=== PATIENT | female | born 1990 | race Caucasian/White ===

== ENCOUNTER 2016-02-20 09:00 | Emergency (ER) | payer OTHER ==
--- NOTE | 2016-02-20 10:03 | EDDOCDS ---
Physician Documentation [facility] Name: Florina Luna Age: 25 yrs Sex: Female : 1990 Arrival Date: 02/20/2016 Time: 09:00 Bed Triage 3 Private MD: Disposition: 02/20/16 09:53 Discharged to Home/Self Care. Impression: Acute nasopharyngitis [common cold], Viral infection, unspecified. - Condition is Stable. - Discharge Instructions: Upper Respiratory Infection, Adult, Viral Infections, Cool Mist Vaporizers. - Prescriptions for azelastine 137 mcg (0.1 %) Nasal Aerosol, [place] - spray 2 spray by INTRANASAL route 2 times per day each nostril; 1 bottle. - Medication Reconciliation, Local Pharmacy Hours form. - [facility]; When: Call to arrange an appointment; Reason: Further diagnostic work-up, Recheck today's complaints, Continuance of care. - Problem is new. - Symptoms are unchanged. Historical: - Allergies: Geodon (numbness); Lemon (Anaphylaxis); - Home Meds: 1. none - PMHx: Anxiety; - PSHx: X 2; laproscopic exploration; Tubal ligation; - Social history: Smoking status: Patient states was never smoker of tobacco. No barriers to communication noted, The patient speaks fluent Ukrainian, Speaks appropriately for age. - Family history: Not pertinent. - : The pt / caregiver states he / she is not on anticoagulants. Home medication list is obtained from the patient. - Exposure Risk Screening:: None identified. 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 5 in. (165.10 cm) (R); Pain 3/10; 09:10 Body Mass Index 29.95 (81.65 kg, 165.10 cm) ct3 MDM: 09:51 Financial registration complete. lg Signatures: Krishna Swain, Francisco Reg lg Kwasi Ardon PA PA btw Tiffany Smith RN RN jc4 Yen,Davida,RN RN ead MTDD
--- NOTE | 2016-02-20 10:03 | EDDOCDS ---
Nurse's Notes [facility] Name: Florina Luna Age: 25 yrs Sex: Female : 1990 Arrival Date: 02/20/2016 Time: 09:00 Bed Triage 3 Private MD: Diagnosis: Acute nasopharyngitis [common cold];Viral infection, unspecified Presentation: 02/19 09:24 Presenting complaint: Patient states: c/o cough, congestion, n/v. onset of symptoms ead yesterday. Adult Sepsis Screening: The patient does not have new or worsening altered mentation. Patient's respiratory rate is less than 22. Systolic blood pressure is greater than 100. Patient has a qSOFA score of 0- Negative Sepsis Screen. Suicide/Homicide risk assessment- the patient denies having any suicidal and/or homicidal ideations and does not present with any other emotional, behavioral or mental health complaints. 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 Transition of care: patient was not received from another setting of care. 09:24 Acuity: DERRELL Level 3 ead 09:24 Method Of Arrival: Walkin/Carried/Asstd ead Triage Assessment: 09:26 General: Appears in no apparent distress, comfortable, Behavior is appropriate for age, ead cooperative. Pain: Location: chest Pain currently is 3 out of 10 on a pain scale. Aggravated by cough. HIV screening NA for this visit Offered previously. Neurological: No deficits noted. Respiratory: Onset: The symptoms/episode began/occurred yesterday, Airway is patent Respiratory effort is even, unlabored, Reports cough that is dry. Derm: Skin is pink, warm & dry. 09:26 GI: Reports nausea, vomiting. 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 none - PMHx: Anxiety; - PSHx: X 2; laproscopic exploration; Tubal ligation; - Social history: Smoking status: Patient states was never smoker of tobacco. No barriers to communication noted, The patient speaks fluent [place], Speaks appropriately for age. - Family history: Not pertinent. - : The pt / caregiver states he / she is not on anticoagulants. Home medication list is obtained from the patient. - Exposure Risk Screening:: None identified. Screenin:38 Screening information is obtained from the patient. Fall risk: No risks identified. jc4 Assistance ADL's: requires no assistance with activities of daily living. Abuse/DV Screen: The patient / caregiver reports he/she is: not in a situation that causes fear, pain or injury. Nutritional screening: No deficits noted. Advance Directives: Currently, there is no health care proxy. There is no active DNR order. There is no living will. There is no Power of Shaper And Presser. home support is adequate. Assessment: 10:01 General: Appears in no apparent distress, Behavior is cooperative, pleasant. jc4 Neurological: Level of Consciousness is awake, alert, Oriented to person, place, time. Cardiovascular: Heart tones S1 S2 present. Respiratory: Airway is patent Respiratory effort is even, unlabored, Respiratory pattern is regular, symmetrical, Breath sounds are clear bilaterally. Derm: Skin is pink, warm & dry. Vital Signs: 09:10 BP 115 / 66; Pulse 68; Resp 18; Temp 97.3(O); Pulse Ox 97% on R/A; Weight 81.65 kg (R); ct3 Height 5 ft. 5 in. (165.10 cm) (R); Pain 3/10; 09:10 Body Mass Index 29.95 (81.65 kg, 165.10 cm) ct3 Vitals: 09:26 Log In Time: February 20, 2016 at 09:00. ead ED Course: 09:01 Patient visited by Benjamín Mascorro Reg. pm4 09:01 Patient moved to Waiting pm4 09:11 Patient moved to Pre RCE ct3 09:25 Triage Initiated ead 09:37 Patient moved to Triage 3 jc4 09:38 The patient / caregiver is instructed regarding the plan of care and ED course. jc4 09:42 Kwasi Ardon PA is PHCP. btw 09:42 Chapin Villeda MD is Attending Physician. btw 09:42 Patient visited by Kwasi Ardon PA. btw 09:52 [facility] is Referral Physician. btw 10:01 No IV's were initiated during this patient's visit. No procedures done that require jc4 assistance. Order Results: There are currently no results for this order. Outcome: 09:53 Discharge ordered by Provider. btw 10:01 Discharge Assessment: Patient awake, alert and oriented x 3. No cognitive and/or jc4 functional deficits noted. Patient verbalized understanding of disposition instructions. patient administered narcotics - no. The following High Risk Discharge criteria are identified: None. Discharged to home ambulatory. Condition: stable. Discharge instructions given to patient, Instructed on discharge instructions, follow up and referral plans. medication usage, Demonstrated understanding of instructions, medications, Pt was receptive of discharge instructions/ teaching. Prescriptions given X 1. No special radiology studies were completed. Property :Personal belongings accompany Pt. 10:02 Patient left the ED. jc4 Signatures: Kwasi Ardon PA PA Tiffany Denson, RN RN jc4 Marlene Briscoe, SHARON STEM LEAD FORMER ct3 Davida Barlow,RN RN eaBenjamín Sandoval, Reg Reg pm4 ASHWIN
--- NOTE | 2016-02-22 11:03 | EDDOCDS ---
Nurse's Notes [facility] Name: Florina Luna Age: 25 yrs Sex: Female : 1990 Arrival Date: 02/20/2016 Time: 09:00 Bed Triage 3 Private MD: Diagnosis: Acute nasopharyngitis [common cold];Viral infection, unspecified Presentation: 02/19 09:24 Presenting complaint: Patient states: c/o cough, congestion, n/v. onset of symptoms ead yesterday. Adult Sepsis Screening: The patient does not have new or worsening altered mentation. Patient's respiratory rate is less than 22. Systolic blood pressure is greater than 100. Patient has a qSOFA score of 0- Negative Sepsis Screen. Suicide/Homicide risk assessment- the patient denies having any suicidal and/or homicidal ideations and does not present with any other emotional, behavioral or mental health complaints. Status: Patient is not a service delivery director or dependent. Transition of care: patient was not received from another setting of care. 09:24 Acuity: DERRELL Level 3 ead 09:24 Method Of Arrival: Walkin/Carried/Asstd ead Triage Assessment: 09:26 General: Appears in no apparent distress, comfortable, Behavior is appropriate for age, ead cooperative. Pain: Location: chest Pain currently is 3 out of 10 on a pain scale. Aggravated by cough. HIV screening NA for this visit Offered previously. Neurological: No deficits noted. Respiratory: Onset: The symptoms/episode began/occurred yesterday, Airway is patent Respiratory effort is even, unlabored, Reports cough that is dry. Derm: Skin is pink, warm & dry. 09:26 GI: Reports nausea, vomiting. 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 none - PMHx: Anxiety; - PSHx: X 2; laproscopic exploration; Tubal ligation; - Social history: Smoking status: Patient states was never smoker of tobacco. No barriers to communication noted, The patient speaks fluent Mohawk, Speaks appropriately for age. - Family history: Not pertinent. - : The pt / caregiver states he / she is not on anticoagulants. Home medication list is obtained from the patient. - Exposure Risk Screening:: None identified. Screenin:38 Screening information is obtained from the patient. Fall risk: No risks identified. jc4 Assistance ADL's: requires no assistance with activities of daily living. Abuse/DV Screen: The patient / caregiver reports he/she is: not in a situation that causes fear, pain or injury. Nutritional screening: No deficits noted. Advance Directives: Currently, there is no health care proxy. There is no active DNR order. There is no living will. There is no Power of Shoemaking Finisher. home support is adequate. Assessment: 10:01 General: Appears in no apparent distress, Behavior is cooperative, pleasant. jc4 Neurological: Level of Consciousness is awake, alert, Oriented to person, place, time. Cardiovascular: Heart tones S1 S2 present. Respiratory: Airway is patent Respiratory effort is even, unlabored, Respiratory pattern is regular, symmetrical, Breath sounds are clear bilaterally. Derm: Skin is pink, warm & dry. Vital Signs: 09:10 BP 115 / 66; Pulse 68; Resp 18; Temp 97.3(O); Pulse Ox 97% on R/A; Weight 81.65 kg (R); ct3 Height 5 ft. 5 in. (165.10 cm) (R); Pain 3/10; 09:10 Body Mass Index 29.95 (81.65 kg, 165.10 cm) ct3 Vitals: 09:26 Log In Time: February 20, 2016 at 09:00. ead ED Course: 09:01 Patient visited by Benjamín Mascorro Reg. pm4 09:01 Patient moved to Waiting pm4 09:11 Patient moved to Pre RCE ct3 09:25 Triage Initiated ead 09:37 Patient moved to Triage 3 jc4 09:38 The patient / caregiver is instructed regarding the plan of care and ED course. jc4 09:42 Kwasi Ardon PA is PHCP. btw 09:42 Chapin Villeda MD is Attending Physician. btw 09:42 Patient visited by Kwasi Ardon PA. btw 09:52 [facility] is Referral Physician. btw 10:01 No IV's were initiated during this patient's visit. No procedures done that require jc4 assistance. 10:54 [facility] Payment Agreement was scanned into [facility] [employer] and attached to record. lg 13:09 T-Sheet-- Draft Copy was scanned into [facility] [employer] and attached to record. Order Results: There are currently no results for this order. Outcome: 09:53 Discharge ordered by Provider. btw 10:01 Discharge Assessment: Patient awake, alert and oriented x 3. No cognitive and/or jc4 functional deficits noted. Patient verbalized understanding of disposition instructions. patient administered narcotics - no. The following High Risk Discharge criteria are identified: None. Discharged to home ambulatory. Condition: stable. Discharge instructions given to patient, Instructed on discharge instructions, follow up and referral plans. medication usage, Demonstrated understanding of instructions, medications, Pt was receptive of discharge instructions/ teaching. Prescriptions given X 1. No special radiology studies were completed. Property :Personal belongings accompany Pt. 10:02 Patient left the ED. jc4 Signatures: Lety Mcallister, Reg Reg gb Krishna Swain, Reg Reg lg Kwasi Ardon PA PA btw [place], Jennifer RN RN jc4 Marlene Briscoe, HOLISTIC NUTRITIONIST HOLISTIC NUTRITIONIST ct3 Davida BarlowRN RN Benjamín Arana, Reg Reg pm4 Chart Complete ASHWIN
--- NOTE | 2016-02-22 11:03 | EDDOCDS ---
Physician Documentation [facility] Name: Florina Luna Age: 25 yrs Sex: Female : 1990 Arrival Date: 02/20/2016 Time: 09:00 Bed Triage 3 Private MD: Disposition: 02/20/16 09:53 Discharged to Home/Self Care. Impression: Acute nasopharyngitis [common cold], Viral infection, unspecified. - Condition is Stable. - Discharge Instructions: Upper Respiratory Infection, Adult, Viral Infections, Cool Mist Vaporizers. - Prescriptions for azelastine 137 mcg (0.1 %) Nasal Aerosol, [place] - spray 2 spray by INTRANASAL route 2 times per day each nostril; 1 bottle. - Medication Reconciliation, Local Pharmacy Hours form. - Follow up: [facility]; When: Call to arrange an appointment; Reason: Further diagnostic work-up, Recheck today's complaints, Continuance of care. - Problem is new. - Symptoms are unchanged. Historical: - Allergies: Geodon (numbness); Lemon (Anaphylaxis); - Home Meds: 1. none - PMHx: Anxiety; - PSHx: X 2; laproscopic exploration; Tubal ligation; - Social history: Smoking status: Patient states was never smoker of tobacco. No barriers to communication noted, The patient speaks fluent Slovenian, Speaks appropriately for age. - Family history: Not pertinent. - : The pt / caregiver states he / she is not on anticoagulants. Home medication list is obtained from the patient. - Exposure Risk Screening:: None identified. 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 5 in. (165.10 cm) (R); Pain 3/10; 09:10 Body Mass Index 29.95 (81.65 kg, 165.10 cm) ct3 MDM: 09:51 Financial registration complete. lg 10:54 [facility] Payment Agreement was scanned into [employer] and attached to record. lg 13:09 T-Sheet-- Draft Copy was scanned into [employer] and attached to record. gb Signatures: Lety Mcallister, Reg Reg gb Krishna Swain, Reg Reg lg Kwasi Ardon PA PA btw [place], Jennifer RN RN jc4 Davida BarlowRN RN ead The chart was reviewed and I authenticate all verbal orders and agree with the evaluation and treatment provided.Attachments: 10:54 [facility] Payment Agreement lg 13:09 T-Sheet-- Draft Copy gb Chart Complete MTDD
--- NOTE | 2016-02-22 11:03 | EDDOCDS ---
Physician Documentation [facility] Name: Florina Luna Age: 25 yrs Sex: Female : 1990 Arrival Date: 02/20/2016 Time: 09:00 Bed Triage 3 Private MD: Disposition: 02/20/16 09:53 Discharged to Home/Self Care. Impression: Acute nasopharyngitis [common cold], Viral infection, unspecified. - Condition is Stable. - Discharge Instructions: Upper Respiratory Infection, Adult, Viral Infections, Cool Mist Vaporizers. - Prescriptions for azelastine 137 mcg (0.1 %) Nasal Aerosol, [place] - spray 2 spray by INTRANASAL route 2 times per day each nostril; 1 bottle. - Medication Reconciliation, Local Pharmacy Hours form. - Follow up: [facility]; When: Call to arrange an appointment; Reason: Further diagnostic work-up, Recheck today's complaints, Continuance of care. - Problem is new. - Symptoms are unchanged. Historical: - Allergies: Geodon (numbness); Lemon (Anaphylaxis); - Home Meds: 1. none - PMHx: Anxiety; - PSHx: X 2; laproscopic exploration; Tubal ligation; - Social history: Smoking status: Patient states was never smoker of tobacco. No barriers to communication noted, The patient speaks fluent Mohawk, Speaks appropriately for age. - Family history: Not pertinent. - : The pt / caregiver states he / she is not on anticoagulants. Home medication list is obtained from the patient. - Exposure Risk Screening:: None identified. 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 5 in. (165.10 cm) (R); Pain 3/10; 09:10 Body Mass Index 29.95 (81.65 kg, 165.10 cm) ct3 MDM: 09:51 Financial registration complete. lg 10:54 [facility] Payment Agreement was scanned into [employer] and attached to record. lg 13:09 T-Sheet-- Draft Copy was scanned into [employer] and attached to record. gb Signatures: Lety Mcallister, Reg Reg gb Krishna Swain, Reg Reg lg Kwasi Ardon PA PA btw [place], Jennifer RN RN jc4 Davida BarlowRN RN ead The chart was reviewed and I authenticate all verbal orders and agree with the evaluation and treatment provided.Attachments: 10:54 [facility] Payment Agreement lg 13:09 T-Sheet-- Draft Copy gb Chart Complete MTDD
== END 2016-02-20 10:02 | disposition home or self-care (01) ==
LOC: M ED 09:00
DX: J00 Acute nasopharyngitis [common cold] (principal); B34.9 Viral infection, unspecified; F41.9 Anxiety disorder, unspecified; Z88.8 Allergy status to other drugs, medicaments and biological substances; Z91.018 Allergy to other foods

== ENCOUNTER → 2016-04-06 | Outpatient (CLI) | payer OTHER ==
--- NOTE | 2016-04-06 19:37 | REP ---
Clinical: Chest pain and discomfort . Comparison: 09/04/2015 . Technique: PA and lateral. Findings: The mediastinum and cardiac silhouette are normal. The lung rodriguez are clear and without acute consolidation, effusion, or pneumothorax. The skeletal structures are intact and normal. Impression: 1. No acute cardiopulmonary process. Signed by Clay Oseguera MD 04/06/2016 07:29 P
== END ==
LOC: M LRY 19:14
PROVIDERS: ATTEND Nurse Practitioner Family
DX: R07.89 Other chest pain (principal)
CPT/HCPCS: 71020; G0463

== ENCOUNTER 2016-06-05 09:03 | Emergency (ER) | payer OTHER ==
[~2016-06-05] VITALS: Ht 167.6 cm; Wt 83.9 kg
[2016-06-05 09:07] VITALS: BP 134/90
[2016-06-05] MEDS ORDERED: XANA0.25 PO (12:50)
== END 2016-06-05 12:58 | disposition home or self-care (01) ==
LOC: M ED 12:14
DX: F41.9 Anxiety disorder, unspecified (principal); Z88.8 Allergy status to other drugs, medicaments and biological substances; Z91.018 Allergy to other foods

== ENCOUNTER → 2016-06-13 | Outpatient (REF) | payer OTHER ==
[~2016-06-13] MED LIST: XANA0.25 PO
[2016-06-13 12:11] LABS: FREE T4 1.12 NG/DL (0.76-1.46)
== END ==
LOC: M SFHCLERA 08:44
PROVIDERS: ATTEND Family Medicine
DX: Z72.51 High risk heterosexual behavior (principal); F41.9 Anxiety disorder, unspecified
CPT/HCPCS: 84439; 84443; 86705; 86709; 86803; 87340; 87491; 87591; 87899; G0463

== ENCOUNTER → 2016-07-05 | Outpatient (REF) | payer OTHER | LOC: M SFHCLERA 20:14 | PROVIDERS: ATTEND Nurse Practitioner Family | DX: F45.8 Other somatoform disorders (principal) ==

== ENCOUNTER → 2016-07-18 | Outpatient (REF) | payer OTHER ==
[~2016-07-18] MED LIST changes: +HYDR-3713 PO; +TRAZ100T4 PO
== END ==
LOC: M SFHCLERA 09:51
PROVIDERS: ATTEND Family Medicine
DX: Z11.3 Encounter for screening for infections with a predominantly sexual mode of transmission (principal)
CPT/HCPCS: 87491; 87591; G0123

== ENCOUNTER 2016-07-20 20:08 | Emergency (ER) | payer OTHER ==
[~2016-07-20] VITALS: Ht 167.6 cm; Wt 81.6 kg
[~2016-07-20 20:08] MED LIST changes: -HYDR-3713 PO; -TRAZ100T4 PO
[2016-07-20 20:10] VITALS: BP 107/64
[2016-07-20] MEDS ORDERED: TRAZ100T4 PO (20:19)
[2016-07-20] MEDS ORDERED: NORCO, ANEXSIA 5/325MG TABLET (HYDROcodone/ACETAMINOPHEN) PO ONE (21:15)
[2016-07-20] MEDS ORDERED: HYDR-3713 PO (21:28)
--- NOTE | 2016-07-21 08:34 | REP ---
Right knee five views : There is no fracture or dislocation. Mineralization and joint spaces are normal. There are no calcifications or foreign bodies. Impression: Negative right knee . Signed by Gregorio Teixeira MD 07/21/2016 08:25 A
== END 2016-07-20 21:45 | disposition home or self-care (01) ==
LOC: M ED 21:06
DX: S83.412A Sprain of medial collateral ligament of left knee, initial encounter (principal); W54.8XXA Other contact with dog, initial encounter; Y92.009 Unspecified place in unspecified non-institutional (private) residence as the place of occurrence of the external cause; Y93.89 Activity, other specified; Y99.8 Other external cause status; F99 Mental disorder, not otherwise specified; Z91.018 Allergy to other foods; Z88.8 Allergy status to other drugs, medicaments and biological substances; Z79.899 Other long term (current) drug therapy

== ENCOUNTER → 2016-08-15 | Outpatient (REF) | payer OTHER ==
[~2016-08-15] MED LIST changes: +HYDR-3713 PO; +NAPR500T PO; +TRAZ-136 PO
== END ==
LOC: M SFHCLERA 12:18
PROVIDERS: ATTEND Family Medicine
DX: Z53.8 Procedure and treatment not carried out for other reasons (principal)

== ENCOUNTER → 2016-08-16 | Outpatient (REF) | payer OTHER ==
[2016-08-16 19:01] LABS: ALBUMIN 3.8 GM/DL (3.2-5.2); ALBUMIN/GLOBULIN RATIO 1.06 (1.00-1.93); ALKALINE PHOSPHATASE 70 U/L (45-117); ALT/SGPT 23 U/L (12-78); ANION GAP 7 MEQ/L (8-16); AST/SGOT 12 U/L (15-37); BILIRUBIN,TOTAL 0.4 MG/DL (0.2-1.0); BLOOD UREA NITROGEN 13 MG/DL (7-18); CALCIUM LEVEL 9.1 MG/DL (8.5-10.1); CARBON DIOXIDE LEVEL 28 MEQ/L (21-32); CHLORIDE LEVEL 106 MEQ/L (98-107); CREATININE FOR GFR 0.78 MG/DL (0.55-1.02); GLOMERULAR FILTRATION RATE > 60.0 (>60); GLUCOSE, FASTING 91 MG/DL (70-105); POTASSIUM SERUM 4.3 MEQ/L (3.5-5.1); SODIUM LEVEL 141 MEQ/L (136-145); TOTAL PROTEIN 7.4 GM/DL (6.4-8.2)
[2016-08-16 19:32] LABS: MEAN CORPUSCULAR HEMOGLOBIN 31.6 pg (27.0-33.0); MEAN CORPUSCULAR HGB CONC 34.2 g/dl (32.0-36.5); MEAN CORPUSCULAR VOLUME 92.2 fl (80.0-96.0); RED CELL DISTRIBUTION WIDTH 12.5 % (11.5-14.5); WHITE BLOOD COUNT 7.5 K/mm3 (4.0-10.0)
== END ==
LOC: M SFHCLERA 11:09
PROVIDERS: ATTEND Family Medicine
DX: R11.0 Nausea (principal)

== ENCOUNTER → 2016-10-05 | Outpatient (REF) | payer OTHER ==
[2016-10-05 20:33] LABS: MEAN CORPUSCULAR HEMOGLOBIN 30.3 pg (27.0-33.0); MEAN CORPUSCULAR HGB CONC 34.4 g/dl (32.0-36.5); MEAN CORPUSCULAR VOLUME 88.2 fl (80.0-96.0); RED CELL DISTRIBUTION WIDTH 12.4 % (11.5-14.5); WHITE BLOOD COUNT 10.1 K/mm3 (4.0-10.0)
== END ==
LOC: M SFHCLERA 19:46
PROVIDERS: ATTEND Nurse Practitioner Family
DX: N92.4 Excessive bleeding in the premenopausal period (principal)

== ENCOUNTER 2016-11-30 09:35 | Emergency (ER) | payer OTHER ==
[~2016-11-30] VITALS: Ht 167.6 cm; Wt 82.7 kg
[~2016-11-30 09:35] MED LIST changes: -NAPR500T PO
[2016-11-30 09:36] VITALS: BP 136/75
--- NOTE | 2016-11-30 11:31 | REP ---
CHEST, TWO VIEWS: There is no evidence of acute infiltrate. No pleural effusion is seen. The heart is normal in size. The mediastinal silhouette is unremarkable. The visualized osseous structures are intact. IMPRESSION: No acute pulmonary disease. Signed by Gregorio Gallo MD 12/03/2016 09:48 A
--- NOTE | 2016-11-30 11:32 | REP ---
RIGHT RIBS: Four views of the right ribs are performed. No fracture or bone lesion is seen. IMPRESSION: Negative right rib series. Signed by Gregorio Gallo MD 12/03/2016 09:48 A
[2016-11-30] MEDS ORDERED: NAPR500T PO (11:45)
== END 2016-11-30 11:53 | disposition home or self-care (01) ==
LOC: M ED 09:35
DX: S29.011A Strain of muscle and tendon of front wall of thorax, initial encounter (principal); X58.XXXA Exposure to other specified factors, initial encounter; Y92.89 Other specified places as the place of occurrence of the external cause; Y93.89 Activity, other specified; Y99.8 Other external cause status; Z79.899 Other long term (current) drug therapy

== ENCOUNTER → 2017-01-21 | Outpatient (CLI) | payer MEDICAID ==
[~2017-01-21] MED LIST changes: +NAPR500T PO
== END ==
LOC: M LRY 16:06
PROVIDERS: ATTEND Family Medicine
DX: Z00.00 Encounter for general adult medical examination without abnormal findings (principal)

== ENCOUNTER 2017-04-03 12:34 | Emergency (ER) | payer OTHER, MEDICAID ==
[2017-04-03 15:07] LABS: BASO % 0.2 % (0.0-1.0); EOS # 0.1 10^3/uL (0.0-0.50); HEMATOCRIT 45.5 % (36.0-47.0); HEMOGLOBIN 15.4 g/dl (12.0-16.0); IMMATURE GRANULOCYTE % 0.2 % (0-3.0); LYMPH # 2.8 10^3/uL (1.5-6.5); LYMPH % 29.9 % (24.0-44.0); MEAN CORPUSCULAR HEMOGLOBIN 29.2 pg (27.0-33.0); MEAN CORPUSCULAR HGB CONC 33.8 g/dl (32.0-36.5); MEAN CORPUSCULAR VOLUME 86.3 fl (80.0-96.0); MONO # 0.5 10^3/uL (0.0-0.8); MONO % 5.4 % (0.0-5.0); NEUTROPHILS # 5.8 10^3/uL (1.8-7.7); NEUTROPHILS % 63.3 % (36.0-66.0); PLATELET COUNT, AUTOMATED 324 10^3/uL (150-450); RED BLOOD COUNT 5.27 10^6/uL (4.00-5.40); RED CELL DISTRIBUTION WIDTH 12.7 % (11.5-14.5); WHITE BLOOD COUNT 9.2 10^3/uL (4.0-10.0)
[2017-04-03 15:22] LABS: ALBUMIN 4.1 GM/DL (3.2-5.2); ALBUMIN/GLOBULIN RATIO 0.98 (1.00-1.93); ALKALINE PHOSPHATASE 76 U/L (45-117); ALT/SGPT 23 U/L (12-78); ANION GAP 6 MEQ/L (8-16); AST/SGOT 13 U/L (7-37); BILIRUBIN,DIRECT < 0.1 MG/DL (0.0-0.2); BILIRUBIN,TOTAL 0.3 MG/DL (0.2-1.0); BLOOD UREA NITROGEN 13 MG/DL (7-18); CALCIUM LEVEL 8.8 MG/DL (8.5-10.1); CARBON DIOXIDE LEVEL 28 MEQ/L (21-32); CHLORIDE LEVEL 106 MEQ/L (98-107); CREATININE FOR GFR 0.77 MG/DL (0.55-1.30); GLOMERULAR FILTRATION RATE > 60.0 (>60); GLUCOSE, FASTING 91 MG/DL (70-100); HCG, SERUM QUANTITATIVE < 1.0 MIU/ML; POTASSIUM SERUM 3.7 MEQ/L (3.5-5.1); SODIUM LEVEL 140 MEQ/L (136-145); TOTAL PROTEIN 8.3 GM/DL (6.4-8.2)
[2017-04-03 15:40] LABS: D-DIMER QUANT 359.3 ng/ml (<500)
[2017-04-03] MEDS ORDERED: ISOVUE-370 76% 100ML VIAL (Q9967) As Ordered (16:25)
== END 2017-04-03 17:43 | disposition home or self-care (01) ==
LOC: M ED 12:34
DX: M94.0 Chondrocostal junction syndrome [Tietze] (principal); F41.9 Anxiety disorder, unspecified; Z82.49 Family history of ischemic heart disease and other diseases of the circulatory system; Z91.018 Allergy to other foods; Z88.8 Allergy status to other drugs, medicaments and biological substances
CPT/HCPCS: Q9967

== ENCOUNTER 2017-08-09 17:18 | Emergency (ER) | payer OTHER ==
[2017-08-09] MEDS: hydrOXYzine 25 MG TAB PO (20:21)
[2017-08-09] MEDS: ASPIRIN 81 MG CHEW TABLET PO (20:21)
[2017-08-09 20:53] LABS: BASO % 0.4 % (0.0-1.0); EOS # 0.1 10^3/uL (0.0-0.50); EOS % 0.8 % (0.0-3.0); HEMOGLOBIN 14.7 g/dl (12.0-15.5); IMMATURE GRANULOCYTE % 0.3 % (0-3.0); LYMPH # 2.5 10^3/uL (1.5-6.5); LYMPH % 22.5 % (24.0-44.0); MEAN CORPUSCULAR HEMOGLOBIN 30.5 pg (27.0-33.0); MEAN CORPUSCULAR VOLUME 87.1 fl (80.0-96.0); MONO # 0.7 10^3/uL (0.0-0.8); MONO % 6.2 % (0.0-5.0); NEUTROPHILS # 7.7 10^3/uL (1.8-7.7); NEUTROPHILS % 69.8 % (36.0-66.0); PLATELET COUNT, AUTOMATED 243 10^3/uL (150-450); RED BLOOD COUNT 4.82 10^6/uL (4.00-5.40); RED CELL DISTRIBUTION WIDTH 12.3 % (11.5-14.5); WHITE BLOOD COUNT 11.1 10^3/uL (4.0-10.0)
[2017-08-09 21:09] LABS: INR 0.98; PROTHROMBIN TIME 13.1 SECONDS (12.1-14.4)
[2017-08-09 21:12] LABS: D-DIMER QUANT 525.9 ng/ml (<500)
[2017-08-09 21:24] LABS: ALBUMIN 3.8 GM/DL (3.2-5.2); ALBUMIN/GLOBULIN RATIO 0.95 (1.00-1.93); ALKALINE PHOSPHATASE 65 U/L (45-117); ALT/SGPT 27 U/L (12-78); ANION GAP 9 MEQ/L (8-16); AST/SGOT 14 U/L (7-37); BILIRUBIN,DIRECT 0.1 MG/DL (0.0-0.2); BILIRUBIN,TOTAL 0.4 MG/DL (0.2-1.0); BLOOD UREA NITROGEN 14 MG/DL (7-18); CALCIUM LEVEL 8.7 MG/DL (8.5-10.1); CARBON DIOXIDE LEVEL 26 MEQ/L (21-32); CHLORIDE LEVEL 107 MEQ/L (98-107); CK-MB VALUE MASS 1.2 NG/ML (<3.6); CPK CREATINE PHOSPHOKINASE 64 U/L (26-192); CREATININE FOR GFR 0.79 MG/DL (0.55-1.30); GLOMERULAR FILTRATION RATE > 60.0 (>60); GLUCOSE, FASTING 88 MG/DL (70-100); MB/CK RELATIVE INDEX 1.87 (< OR =4); SODIUM LEVEL 142 MEQ/L (136-145); TOTAL PROTEIN 7.8 GM/DL (6.4-8.2); TROPONIN I < 0.02 NG/ML (< 0.10)
== END 2017-08-09 22:39 | disposition home or self-care (01) ==
LOC: M ED 17:18
DX: R07.89 Other chest pain (principal); F41.9 Anxiety disorder, unspecified; R00.1 Bradycardia, unspecified; Z79.899 Other long term (current) drug therapy; Z88.8 Allergy status to other drugs, medicaments and biological substances; Z91.018 Allergy to other foods
CPT/HCPCS: 71046

== ENCOUNTER → 2017-08-13 | Outpatient (CLI) | payer OTHER ==
[~2017-08-13] MED LIST changes: -HYDR-3713 PO; +ISOVUE-370 76% 100ML VIAL (Q9967) As Ordered; -NAPR500T PO; -TRAZ-136 PO; -XANA0.25 PO
== END ==
LOC: M RAD 09:01
DX: R07.9 Chest pain, unspecified (principal); R06.00 Dyspnea, unspecified; J98.11 Atelectasis

== ENCOUNTER → 2017-10-02 | Outpatient (CLI) | payer OTHER | LOC: M LRY 19:10 | DX: S89.92XA Unspecified injury of left lower leg, initial encounter (principal); X58.XXXA Exposure to other specified factors, initial encounter; Y92.9 Unspecified place or not applicable | CPT/HCPCS: 73564 ==

== ENCOUNTER 2017-10-28 09:30 | Emergency (ER) | payer OTHER ==
[2017-10-28] MEDS: diazePAM 5 MG TAB PO (10:15)
[2017-10-28] MEDS: methylPREDNISolone INJ 125 MG/2 ML VIAL (J2930) IM (10:15)
== END 2017-10-28 13:21 | disposition home or self-care (01) ==
LOC: M ED 09:30
DX: M62.830 Muscle spasm of back (principal); J45.909 Unspecified asthma, uncomplicated; F41.9 Anxiety disorder, unspecified; E28.2 Polycystic ovarian syndrome; Z79.899 Other long term (current) drug therapy; Z79.3 Long term (current) use of hormonal contraceptives; Z88.8 Allergy status to other drugs, medicaments and biological substances; Z91.018 Allergy to other foods
CPT/HCPCS: J2930

== ENCOUNTER → 2017-12-04 | Outpatient (REF) | payer OTHER ==
[2017-12-04 13:33] LABS: RHEUMATOID FACTOR QUANT < 10.0 IU/ML (<15.0)
[2017-12-04 13:44] LABS: FOLATE > 24.0 NG/ML
[2017-12-04 14:45] LABS: ERYTHROCYTE SEDIMENTATION RATE 15 mm/hr (0-20)
[2017-12-05 14:13] LABS: ANTINUCLEAR ANTIBODIES DIRECT Negative (Negative)
== END ==
LOC: M LABNEURO 08:57
DX: G43.909 Migraine, unspecified, not intractable, without status migrainosus (principal); M25.511 Pain in right shoulder

== ENCOUNTER 2018-07-30 08:38 | Day surgery (SDC) | payer OTHER ==
[~2018-07-30] VITALS: Ht 167.6 cm; Wt 103.9 kg
[~2018-07-30 08:38] MED LIST changes: +ACETAMINOPHEN 650 MG SUPP PR ONE; +HYDR-3363 PO; +HYDR-3713 PO; +IBUP200C25 PO; -ISOVUE-370 76% 100ML VIAL (Q9967) As Ordered; +LIDOCAINE 1% MDV 20ML VIAL SQ PRN; +LR 1,000 ML IV ONE; +METF500T13; +MULTCAP PO; +NAPR-837 PO; +NS 1,000 ML IV SCH; +PRED20TA PO; +PROAAER10; +SODIUM CHLORIDE 0.9% 1000ML IV ONE; +TRAZ-163 PO; +TRIN1TAB2; +VALI5TAB PO; +XANA0.25 PO
[2018-07-30 09:10] LABS: HEMATOCRIT 44.7 % (36.0-47.0); HEMOGLOBIN 14.5 g/dl (12.0-15.5); MEAN CORPUSCULAR HEMOGLOBIN 26.9 pg (27.0-33.0); MEAN CORPUSCULAR HGB CONC 32.4 g/dl (32.0-36.5); MEAN CORPUSCULAR VOLUME 82.9 fl (80.0-96.0); PLATELET COUNT, AUTOMATED 341 10^3/uL (150-450); RED BLOOD COUNT 5.39 10^6/uL (4.00-5.40); WHITE BLOOD COUNT 8.1 10^3/uL (4.0-10.0)
[2018-07-30 09:44] LABS: BLOOD UREA NITROGEN 12 MG/DL (7-18); CALCIUM LEVEL 9.2 MG/DL (8.5-10.1); CARBON DIOXIDE LEVEL 29 MEQ/L (21-32); CHLORIDE LEVEL 107 MEQ/L (98-107); GLOMERULAR FILTRATION RATE > 60.0 (>60); GLUCOSE, FASTING 95 MG/DL (70-100); HCG, SERUM QUANTITATIVE < 1.0 MIU/ML; POTASSIUM SERUM 4.5 MEQ/L (3.5-5.1); SODIUM LEVEL 140 MEQ/L (136-145)
[2018-07-30] MEDS ORDERED: SCOPOLAMINE 1MG TRANSDERMAL PATCH As Ordered ONE (11:30)
[2018-07-30] MEDS ORDERED: SCOPOLAMINE 1MG TRANSDERMAL PATCH TOP ONE (11:45)
[2018-07-30] MEDS ORDERED: METHYLENE BLUE 0.5% (5MG/ML) 10 ML AMP (PROVAYBLUE)(Q9968 PER 1MG) As Ordered ONE (11:59)
[2018-07-30] MEDS ORDERED: ACETAMINOPHEN 650 MG SUPP As Ordered ONE (11:59)
[2018-07-30] MEDS ORDERED: BUPIVACAINE HCL 0.5% 10 ML VIAL As Ordered ONE (11:59)
[2018-07-30] MEDS ORDERED: KETOROLAC 60 MG/2 ML VIAL (J1885) As Ordered ONE (12:40)
[2018-07-30] MEDS ORDERED: PROPOFOL 200 MG/20 ML VIAL As Ordered ONE (12:40)
[2018-07-30] MEDS ORDERED: dexameTHASONE 4 MG/ML 1ML VIAL (J1100) As Ordered ONE (12:40)
[2018-07-30] MEDS ORDERED: LIDOCAINE 2% INJ 100 MG/5 ML SDV (FOR ANES.) As Ordered ONE (12:40)
[2018-07-30] MEDS ORDERED: SUGAMMADEX SODIUM 500 MG/5 ML VIAL (BRIDION) As Ordered ONE (12:40)
[2018-07-30] MEDS ORDERED: ROCURONIUM BROMIDE 50 MG/5 ML VIAL As Ordered ONE (12:40)
[2018-07-30] MEDS ORDERED: ONDANSETRON 4MG/2ML VIAL (J2405) As Ordered ONE (12:40)
[2018-07-30] MEDS ORDERED: MIDAZOLAM INJ 2 MG/2 ML VIAL (J2250) As Ordered ONE (12:40)
[2018-07-30] MEDS ORDERED: GLYCOPYRROLATE INJ 0.2 MG/ML 2 ML VIAL As Ordered ONE (12:40)
[2018-07-30] MEDS ORDERED: fentaNYL 250 MCG/5 ML INJECTION (J3010) As Ordered ONE (12:40)
[2018-07-30] MEDS ORDERED: ONDANSETRON 4MG/2ML VIAL (J2405) IV PRN (13:45)
[2018-07-30] MEDS ORDERED: LR 1,000 ML IV SCH (13:45)
[2018-07-30] MEDS ORDERED: METOCLOPRAMIDE INJ 10MG/2ML VIAL (J2765) IV PRN (13:45)
[2018-07-30] MEDS ORDERED: fentaNYL 100 MCG/2 ML INJECTION (J3010) IV PRN (13:45)
[2018-07-30] MEDS ORDERED: PERCOCET 5MG/325MG TAB PO PRN (13:45)
[2018-07-30] MEDS ORDERED: KETOROLAC 30 MG/ML VIAL (J1885) IM PRN (14:00)
[2018-07-30] MEDS ORDERED: PERCOCET 5MG/325MG TAB As Ordered ONE (15:19)
[2018-07-30 16:00] VITALS: BP 134/70
--- NOTE | 2018-08-05 20:56 | RO ---
DATE OF PROCEDURE: 07/30/2018 PREOPERATIVE DIAGNOSIS: Dysfunctional uterine bleeding, failed medical therapy and dyspareunia. POSTOPERATIVE DIAGNOSIS: Dysfunctional uterine bleeding and dyspareunia. OPERATION PROPOSED: Operative laparoscopy, stage grade vaporize endometriosis, hysteroscopy, D and C, placement of Mirena IUCD. OPERATION PERFORMED: Operative laparoscopy, release of adhesions, hysteroscopy. D and C. SURGEON: Daniel Rothman MD ONCOLOGY PHYSICIAN ASSISTANT: Dr. Honeycutt for retraction, extraction and visualization. ANESTHESIA: General plus local anesthetic for intraperitoneal procedures. ESTIMATED BLOOD LOSS: Less than 25 mL DESCRIPTION OF PROCEDURE: After adequate time-out, prepped and draped in the lithotomy position, Garcia catheter in the bladder draining clear urine. Sequentials in place, acetaminophen suppository 1300 mg per rectum. Time-out was appropriate. Weighted speculum vagina, single-tooth tenaculum on the anterior lip of the cervix. Reprepping and draping, small subumbilical incision was made. Veress needle was applied. 2.8 liters of CO2 to flow rate of 14 to pressure of 15. Visiport was used. Direct visualization. No evidence of perforation, hemorrhage or bleeding. Panoramic review of the right upper quadrant was normal. The left upper quadrant was normal. Stomach was deflated. The right tube was normal. Left tube was normal. The patient had Falope rings in which were still in place. The anterior aspect of the bladder had some scarring from previous section. There was no evidence of endometriosis. The uterus itself was mobile. The remaining tubes seem to be present and again we did not see any evidence of endometriosis. She had some filmy adhesions, possibly with the small bowel adhered to the anterior aspect of the bladder. These were taken down very easily and then there were no other issues present there. The cul-de-sac was clear. Unable to identify any etiology for her dyspareunia. With that done and instrument and pad count correct we deflated to 4 mm pressure, removed the mainstem port and the lateral ports. Did subcuticular stitches, Marcaine 0.25% and skin tapes. Then going below, we went ahead and removed the uterine elevator. We then sound the uterus up to 9 cm. It was already dilated enough to put a hysteroscope in 30 degrees. Reviewed the anterior and posterior cul-de-sac. We reviewed the ostium. There is no defect in the uterus. We did take a sample and sent it off to pathology under separate cover. I do not think this lady is a candidate at the present time for Mirena IUCD in regards to endometriosis, however this lady may do well with an ablation if she is amenable to that, which would help solve the issue of her dysfunctional uterine bleeding, failed medical therapy, but will not address the issue of dyspareunia. The terminal result for that may or may not be a laparoscopic-assisted vaginal hysterectomy, however, there is no guarantee that would secure relief of her dyspareunia. We used 150 mL in and 150 mL out. With instrument and pad count correct, all instruments removed. Garcia catheter was removed and the patient was sent to recovery in good condition.
== END 2018-07-30 16:15 | disposition home or self-care (01) ==
LOC: M SDC 08:38
PROVIDERS: ATTEND Obstetrics & Gynecology
DX: N94.10 Unspecified dyspareunia (principal); N93.9 Abnormal uterine and vaginal bleeding, unspecified; N73.6 Female pelvic peritoneal adhesions (postinfective); E28.2 Polycystic ovarian syndrome; J45.909 Unspecified asthma, uncomplicated; Z79.899 Other long term (current) drug therapy; Z88.8 Allergy status to other drugs, medicaments and biological substances
CPT/HCPCS: 36415; 58558; 58660; 80048; 84702; 85027; 88305; J1100; J1885; J2250; J2405; J3010

== ENCOUNTER 2018-10-02 03:46 | Emergency (ER) | payer OTHER ==
[~2018-10-02] VITALS: Ht 167.6 cm; Wt 104.5 kg
[~2018-10-02 03:46] MED LIST changes: -ACETAMINOPHEN 650 MG SUPP PR ONE; -LIDOCAINE 1% MDV 20ML VIAL SQ PRN; -LR 1,000 ML IV ONE; -NS 1,000 ML IV SCH; -SODIUM CHLORIDE 0.9% 1000ML IV ONE
[2018-10-02] MEDS ORDERED: diphenhydrAMINE INJ 50MG/ML VIAL (J1200) IV ONE (04:45)
[2018-10-02] MEDS ORDERED: NS 1,000 ML IV ONE (04:45)
[2018-10-02] MEDS ORDERED: METOCLOPRAMIDE INJ 10MG/2ML VIAL (J2765) IV ONE (04:45)
[2018-10-02] MEDS ORDERED: KETOROLAC 30 MG/ML VIAL (J1885) IV ONE (05:00)
[2018-10-02 06:06] VITALS: BP 134/76
[2018-10-21] MEDS ORDERED: OMEP40CA2 PO (13:39)
[2018-10-21] MEDS ORDERED: SOMA350T PO (13:39)
[2018-10-21] MEDS ORDERED: ROBA750T4 PO (13:44)
== END 2018-10-02 06:12 | disposition home or self-care (01) ==
LOC: M ED 03:46
DX: G43.909 Migraine, unspecified, not intractable, without status migrainosus (principal); F41.1 Generalized anxiety disorder; Z79.899 Other long term (current) drug therapy; Z88.8 Allergy status to other drugs, medicaments and biological substances; Z91.018 Allergy to other foods; Z91.048 Other nonmedicinal substance allergy status
CPT/HCPCS: 96361; 96374; 96375; 99284; J1200; J1885; J2765

== ENCOUNTER 2018-10-28 10:44 | Day surgery (SDC) | payer OTHER ==
[~2018-10-28] VITALS: Ht 167.6 cm; Wt 104.2 kg
[~2018-10-28 10:44] MED LIST changes: +ACETAMINOPHEN 650 MG SUPP PR ONE; +LR 1,000 ML IV ONE; +OMEP40CA2 PO; +ROBA750T4 PO; +SOMA350T PO
[2018-10-28 11:11] LABS: HEMATOCRIT 43.2 % (36.0-47.0); HEMOGLOBIN 14.2 g/dl (12.0-15.5); MEAN CORPUSCULAR HEMOGLOBIN 27.2 pg (27.0-33.0); MEAN CORPUSCULAR HGB CONC 32.9 g/dl (32.0-36.5); MEAN CORPUSCULAR VOLUME 82.6 fl (80.0-96.0); PLATELET COUNT, AUTOMATED 306 10^3/uL (150-450); RED BLOOD COUNT 5.23 10^6/uL (4.00-5.40); WHITE BLOOD COUNT 10.4 10^3/uL (4.0-10.0)
[2018-10-28 11:45] LABS: BLOOD UREA NITROGEN 11 MG/DL (7-18); CALCIUM LEVEL 9.2 MG/DL (8.5-10.1); CARBON DIOXIDE LEVEL 27 MEQ/L (21-32); CHLORIDE LEVEL 106 MEQ/L (98-107); CREATININE FOR GFR 0.76 MG/DL (0.55-1.30); GLOMERULAR FILTRATION RATE > 60.0 (>60); GLUCOSE, FASTING 87 MG/DL (70-100); HCG, SERUM QUANTITATIVE < 1.0 MIU/ML; SODIUM LEVEL 140 MEQ/L (136-145)
[2018-10-28] MEDS ORDERED: PROPOFOL 200 MG/20 ML VIAL As Ordered ONE (12:47)
[2018-10-28] MEDS ORDERED: ONDANSETRON 4MG/2ML VIAL (J2405) As Ordered ONE (12:47)
[2018-10-28] MEDS ORDERED: LIDOCAINE 2% INJ 100 MG/5 ML SDV (FOR ANES.) As Ordered ONE (12:47)
[2018-10-28] MEDS ORDERED: ROCURONIUM BROMIDE 50 MG/5 ML VIAL As Ordered ONE (12:47)
[2018-10-28] MEDS ORDERED: dexameTHASONE 4 MG/ML 1ML VIAL (J1100) As Ordered ONE (12:47)
[2018-10-28] MEDS ORDERED: KETOROLAC 60 MG/2 ML VIAL (J1885) As Ordered ONE (12:47)
[2018-10-28] MEDS ORDERED: MIDAZOLAM INJ 2 MG/2 ML VIAL (J2250) As Ordered ONE (13:26)
[2018-10-28] MEDS ORDERED: fentaNYL 250 MCG/5 ML INJECTION (J3010) As Ordered ONE (13:26)
[2018-10-28] MEDS ORDERED: ACETAMINOPHEN 650 MG SUPP As Ordered ONE (13:41)
[2018-10-28] MEDS ORDERED: SUGAMMADEX SODIUM 500 MG/5 ML VIAL (BRIDION) As Ordered ONE (14:06)
[2018-10-28] MEDS ORDERED: METOCLOPRAMIDE INJ 10MG/2ML VIAL (J2765) As Ordered ONE (14:13)
[2018-10-28] MEDS ORDERED: LR 1,000 ML IV SCH (15:00)
[2018-10-28] MEDS ORDERED: fentaNYL 100 MCG/2 ML INJECTION (J3010) IV PRN (15:00)
[2018-10-28] MEDS ORDERED: oxyCODONE 5MG TAB PO PRN (15:00)
[2018-10-28] MEDS ORDERED: KETOROLAC 30 MG/ML VIAL (J1885) IV PRN (15:00)
[2018-10-28 15:10] VITALS: BP 115/72
== END 2018-10-28 15:47 | disposition home or self-care (01) ==
LOC: M SDC 10:44
PROVIDERS: ATTEND Obstetrics & Gynecology
DX: N92.0 Excessive and frequent menstruation with regular cycle (principal); K21.9 Gastro-esophageal reflux disease without esophagitis; G43.919 Migraine, unspecified, intractable, without status migrainosus; F32.9 Major depressive disorder, single episode, unspecified; F43.10 Post-traumatic stress disorder, unspecified; Z88.8 Allergy status to other drugs, medicaments and biological substances; Z79.899 Other long term (current) drug therapy
CPT/HCPCS: 36415; 58563; 80048; 84702; 85027; 88305; J1100; J1885; J2250; J2405; J2765; J3010

== ENCOUNTER 2018-11-06 14:36 | Emergency (ER) | payer OTHER ==
[~2018-11-06] VITALS: Ht 167.6 cm; Wt 105.1 kg
[~2018-11-06 14:36] MED LIST changes: -ACETAMINOPHEN 650 MG SUPP PR ONE; -LR 1,000 ML IV ONE
[2018-11-06 15:07] LABS: BASO % 0.3 % (0.0-1.0); EOS # 0.2 10^3/uL (0.0-0.5); HEMATOCRIT 42.9 % (36.0-47.0); HEMOGLOBIN 13.9 g/dl (12.0-15.5); LYMPH # 2.8 10^3/uL (1.5-5.0); LYMPH % 32.8 % (24.0-44.0); MEAN CORPUSCULAR HEMOGLOBIN 27.5 pg (27.0-33.0); MEAN CORPUSCULAR HGB CONC 32.4 g/dl (32.0-36.5); MEAN CORPUSCULAR VOLUME 84.8 fl (80.0-96.0); MONO # 0.6 10^3/uL (0.0-0.8); MONO % 6.9 % (0.0-5.0); NEUTROPHILS % 57.8 % (36.0-66.0); PLATELET COUNT, AUTOMATED 312 10^3/uL (150-450); RED BLOOD COUNT 5.06 10^6/uL (4.00-5.40); WHITE BLOOD COUNT 8.6 10^3/uL (4.0-10.0)
[2018-11-06 15:32] LABS: ALBUMIN 3.5 GM/DL (3.2-5.2); ALT/SGPT 24 U/L (12-78); BILIRUBIN,DIRECT < 0.1 MG/DL (0.0-0.2); BILIRUBIN,TOTAL 0.3 MG/DL (0.2-1.0); BLOOD UREA NITROGEN 14 MG/DL (7-18); CALCIUM LEVEL 9.3 MG/DL (8.5-10.1); CARBON DIOXIDE LEVEL 29 MEQ/L (21-32); CHLORIDE LEVEL 108 MEQ/L (98-107); CREATININE FOR GFR 0.85 MG/DL (0.55-1.30); GLOMERULAR FILTRATION RATE > 60.0 (>60); GLUCOSE, FASTING 97 MG/DL (70-100); LIPASE 110 U/L (73-393); POTASSIUM SERUM 4.3 MEQ/L (3.5-5.1); SODIUM LEVEL 144 MEQ/L (136-145)
[2018-11-06] MEDS ORDERED: ISOVUE-370 76% 100ML VIAL (Q9967) As Ordered ONE (16:44)
--- NOTE | 2018-11-06 18:32 | REPVR ---
PROCEDURE INFORMATION: Exam: CT Abdomen and Pelvis With Contrast Exam date and time: 11/06/2018 4:38 PM Clinical history: 28 years old, female; Abdominal pain; Additional info: Llq abd pain, S/P uterine ablation 9 days ago TECHNIQUE: Imaging protocol: Computed tomography of the abdomen and pelvis with intravenous contrast. Radiation optimization: All CT scans at this facility use at least one of these dose optimization techniques: automated exposure control; mA and/or kV adjustment per patient size (includes targeted exams where dose is matched to clinical indication); or iterative reconstruction. Contrast material: ISOVUE 370; Contrast volume: 75 ml; Contrast route: IV; COMPARISON: CT ABD PELVIS W/O CONTRAST 07/16/2014 10:58 PM FINDINGS: Liver: There is a diffuse decrease in hepatic parenchymal density, consistent with fatty infiltration. Gallbladder and bile ducts: Normal. No calcified stones. No ductal dilation. Pancreas: Normal. No ductal dilation. Spleen: Normal. No splenomegaly. Adrenals: Normal. No mass. Kidneys and ureters: Normal. No hydronephrosis. Stomach and bowel: Unremarkable. No obstruction. No mucosal thickening. Appendix: No evidence of appendicitis. Intraperitoneal space: Unremarkable. No free air. No significant fluid collection. Vasculature: Unremarkable. No abdominal aortic aneurysm. Lymph nodes: Unremarkable. No enlarged lymph nodes. Bladder: Unremarkable as visualized. Reproductive: Unremarkable as visualized. Bones/joints: Unremarkable. No acute fracture. Soft tissues: Small umbilical hernia. IMPRESSION: 1. There is a diffuse decrease in hepatic parenchymal density, consistent with fatty infiltration. 2. No acute findings. Electronically signed by: Benjamín Godfrey On 11/06/2018 18:32:02 PM
[2018-11-06 18:57] VITALS: BP 142/90
[2018-11-06] MEDS ORDERED: KETOROLAC 30 MG/ML VIAL (J1885) IV ONE (19:00)
[2018-11-06] MEDS ORDERED: ACETAMINOPHEN 325 MG TAB PO ONE (19:00)
== END 2018-11-06 19:49 | disposition home or self-care (01) ==
LOC: M ED 14:36
DX: R10.2 Pelvic and perineal pain (principal); Z98.890 Other specified postprocedural states; Z79.899 Other long term (current) drug therapy; Z88.8 Allergy status to other drugs, medicaments and biological substances; Z91.018 Allergy to other foods; Z91.048 Other nonmedicinal substance allergy status
CPT/HCPCS: 36415; 74177; 80048; 80076; 81001; 83690; 85025; 96374; 99284; J1885; Q9967

== ENCOUNTER 2018-11-18 08:33 | Emergency (ER) | payer OTHER ==
[~2018-11-18] VITALS: Ht 167.6 cm; Wt 102.3 kg
[~2018-11-18 08:33] MED LIST changes: -OMEP40CA2 PO; +OMEP40CA97 PO
[2018-11-18] MEDS ORDERED: OXYC1TAB23 PO (08:39)
[2018-11-18] MEDS ORDERED: CIPR500T3 PO (08:39)
[2018-11-18] MEDS ORDERED: NS 1,000 ML IV ONE (09:00)
[2018-11-18] MEDS ORDERED: KETOROLAC 30 MG/ML VIAL (J1885) IV ONE (09:00)
[2018-11-18 09:09] LABS: BASO % 0.3 % (0.0-1.0); EOS # 0.1 10^3/uL (0.0-0.5); EOS % 0.8 % (0.0-3.0); HEMATOCRIT 47.3 % (36.0-47.0); HEMOGLOBIN 15.8 g/dl (12.0-15.5); LYMPH # 2.1 10^3/uL (1.5-5.0); LYMPH % 17.2 % (24.0-44.0); MEAN CORPUSCULAR HEMOGLOBIN 27.5 pg (27.0-33.0); MEAN CORPUSCULAR HGB CONC 33.4 g/dl (32.0-36.5); MEAN CORPUSCULAR VOLUME 82.3 fl (80.0-96.0); MONO # 0.6 10^3/uL (0.0-0.8); NEUTROPHILS # 9.2 10^3/uL (1.5-8.5); NEUTROPHILS % 76.3 % (36.0-66.0); PLATELET COUNT, AUTOMATED 374 10^3/uL (150-450); RED BLOOD COUNT 5.75 10^6/uL (4.00-5.40); WHITE BLOOD COUNT 12.1 10^3/uL (4.0-10.0)
[2018-11-18 09:40] LABS: ALBUMIN 3.8 GM/DL (3.2-5.2); ALT/SGPT 24 U/L (12-78); BILIRUBIN,DIRECT 0.1 MG/DL (0.0-0.2); BILIRUBIN,TOTAL 0.4 MG/DL (0.2-1.0); BLOOD UREA NITROGEN 12 MG/DL (7-18); CALCIUM LEVEL 9.6 MG/DL (8.5-10.1); CARBON DIOXIDE LEVEL 24 MEQ/L (21-32); CHLORIDE LEVEL 104 MEQ/L (98-107); CREATININE FOR GFR 0.93 MG/DL (0.55-1.30); GLOMERULAR FILTRATION RATE > 60.0 (>60); GLUCOSE, FASTING 94 MG/DL (70-100); POTASSIUM SERUM 4.1 MEQ/L (3.5-5.1); SODIUM LEVEL 138 MEQ/L (136-145); TOTAL PROTEIN 8.3 GM/DL (6.4-8.2)
[2018-11-18] MEDS ORDERED: ISOVUE-370 76% 100ML VIAL (Q9967) As Ordered ONE (09:54)
[2018-11-18] MEDS ORDERED: MORPHINE 4 MG/ML 1ML VIAL/SYRINGE (J2270) IV ONE ×2 (10:00→11:45)
--- NOTE | 2018-11-18 10:55 | REP ---
CT abdomen and pelvis with IV but without oral contrast: History: Left flank pain. Pelvic pain. Status post uterine ablation/endometrial curetting on October 28, 2018. Comparison CT study November 06, 2018. CT contrast dose: 100 mL of intravenous Isovue [address] findings: Digital preliminary yeast culture operator radiograph is unremarkable. The lung bases are clear. There is a small sliding-type hiatal hernia. No adrenal lesion is seen. The liver and the spleen are normal in size, homogeneous in texture. No pancreatic abnormality is observed. There is a phrygian cap morphology to the gallbladder without wall thickening or calcified gallstone. No biliary ductal dilation is observed. The kidneys enhance symmetrically and are morphologically intact. No hydronephrosis or intrarenal calculus is observed. 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 No retroperitoneal mass or adenopathy is seen. Small and large bowel loops are unremarkable in the upper abdomen. Pelvic CT images demonstrate fluid and a tiny bubble of air in the endometrial and endocervical canal. The canal measures up to 13 mm anterior to posterior by 18 mm right to left. This is similar to the prior CT study. No focal uterine mass is seen. No adnexal cyst or mass is observed. A normal appendix is noted in the right lower quadrant. No abdominal wall defect is seen. Urinary bladder is unremarkable. Impression: Small quantity of endometrial fluid and/or endometrial thickening. Otherwise normal CT study abdomen and pelvis. No acute abnormality. Small sliding-type hiatal hernia. Electronically Signed by Jovan Melvin MD 11/18/2018 11:35 A
[2018-11-18] MEDS ORDERED: ONDANSETRON 4MG/2ML VIAL (J2405) IV ONE (11:00)
[2018-11-18] MEDS ORDERED: KETO10TAB PO (13:40)
[2018-11-18] MEDS ORDERED: ONDA4TAB6 PO (13:40)
[2018-11-18] MEDS ORDERED: MIRA3350 PO (13:40)
[2018-11-18 13:45] VITALS: BP 125/82
--- NOTE | 2018-11-18 13:57 | IPNPDOC ---
Text Note Date of Service The patient was seen on 11/18/18. NOTE Reason for Consult: Back pain in postoperative patient HPI: Ms. Glass is a 28y/o s/p hysteroscopy D&C, endometrial ablation on 28Oct[address] Buckner for abnormal uterine bleeding presenting today with worsening right sided back pain over the last week. Patient reports that, after surgery she was doing well until two weeks ago, when she noted severe cramping in per pelvis which radiated around to her back. She was seen for this complaint in the ED on Saturday, with normal imaging and laboratory studies and she was sent home with reassurance. She then saw Dr. Rothman two days later on , at which time pelvic exam was notable for dark brown discharge without foul odor, no uterine tenderness. Genital swabs were collected but not entered by lab. He started her on Ciprofloxacin prophylactically at that time and was as prescribed Oxycodone for pain control. Today, patient reports insidiously worsening since last Saturday, she has been experiencing severe back pain in her right low back. She reports the pain was not incited by any trauma or particular activity, and that it is constant rather than intermittent in nature. She began to have nausea/vomiting and PO intolerance yesterday. She denies any fevers/chills/chest pain or shortness of breathe though does note pain with deep inspiration. She denies abdominal pain. No dysuria, urinary frequency or urgency. Last bowel movement was two days ago, solid, requiring some straining. She usually has soft daily bowel movements. Patient notes that she has a history of upper back pain due to some bulging discs in her thoracic vertebrae. She usually takes a muscle relaxant, but s topped when she was prescribed narcotics. She reports this pain is different from her usual muscle spasm pain. PMH: Bulging discs, Anxiety, Activity induced asthma, PCOS. Denies HTN/DM/Seizures. Denies history of VTE. PSH: Endometrial ablation 17Sep, x2, BTL, 2 laparoscopies with adhes iolysis Meds: Muscle relaxer, Omeprazole, Albuterol inhaler, Ibuprofen, MVI. Currently on Ciprolfoxacin and Oxycodone. All - Giodon, everardo, limes SocHx: Denies alcohol or tobacco use. Endorses marijuana use once weekly. Denies history of cocaine, heroine other illicit drug or prescription drug a buse. FamHx: Maternal aunt with breast cancer. Several members with DM and heart disease. PE: Initial vitals T97.6 HR 89 RR 22 BP 166/75, Pulse ox 98% RA, hypertension and tachypnea resolved in ED Gen - Tearful, appears unable to sit still initially due to discomfort Resp - Non labored breathing CV - Well perfused Abd - Soft, obese, NT/ND Back - 0.5cm and smaller 0.25cm area of redness in the right back area of concern which appear consistent with insect bite. No evidence of surrounding cellulitis. No CVA tenderness. Tenderness to palpation of top of pelvic brim on the right side in an area about [id number]. Pelvic: Normal external female genitalia. Cervix and vagina without lesion. 2 altman swabs of dark brown discharge with odor consistent with sloughing of endometrium s/p ablation. No lesions, purulent drainage or bright red bleeding. Uterus non tender, no cervical motion tenderness, no adnexal tenderness on exam. Ext - moving all four spontaneously Labs: See below Straight cath UA with 1+ Ketones, no leukocytes esterase or nitites, no WBC, no bacteria Rads: CT scan with hiatal hernia, postoperative changes in the uterus as expected, otherwise unremarkable. A/p: 28y/o 3 wks s/p uncomplicated endometrial ablation with worsening back pain. No evidence of endometritis, pyelonephritis or UTI, kidney stone to explain symptoms. No CT evidence of uterine perforation or other complication from surgery. Patient mildly constipated with history of MSK back pain. -Recommend antiemetics PRN for PO tolerance -Once PO tolerance achieved, may treat pain with oral pain medications and Flexeril -If pain control and PO tolerance achieved, discharge with strong return precaut ions -Recommend Miralax BID until soft bowel movement, then daily thereafter -Followup scheduled with Dr. Rothman at [facility] on 20Nov2018 at 1105 -Discussed above findings with patient and all questions answered to her satisfaction VS,Fishbone, I+O VS, Fishbone, I+O Laboratory Tests 11/18/18 08:56 Red Blood Count 5.75 H, Mean Corpuscular Volume 82.3, Mean Corpuscular Hemoglobin 27.5, Mean Corpuscular Hemoglobin Concent 33.4, Red Cell Distribution Width 13.7, Neutrophils (%) (Auto) 76.3 H, Lymphocytes (%) (Auto) 17.2 L, Monocytes (%) (Auto) 5.0, Eosinophils (%) (Auto) 0.8, Basophils (%) (Auto) 0.3, Neutrophils # (Auto) 9.2 H, Lymphocytes # (Auto) 2.1, Monocytes # (Auto) 0.6, Eosinophils # (Auto) 0.1, Basophils # (Auto) 0.0 Vital Signs Date Time Temp Pulse Resp B/P (MAP) Pulse Ox O2 Delivery O2 Flow Rate FiO2 11/18/18 12:22 16 98 11/18/18 11:41 73 127/68 11/18/18 08:33 97.6 Room Air Initial Treatment Plan 1. Patient was admitted on a [9.39] status. 2. Complete history was obtained. 3. With patients permission, family will be contacted and database will be expanded. 4. Patients medication regimen will be reviewed and changed accordingly. 5. Patient will be provided with protected environment. 6. Patient will be treated with individual, group, and milieu therapies. 7. Patient will receive supportive psych-education. 8. Discharge planning will commence immediately. 9. Outpatient follow-up treatment will be strongly recommended. 10. The initial treatment plan will focus initially on: * Depression. * Risk for suicide. ESTIMATED LENGTH OF STAY: - DAYS. TIME SPENT COUNSELING AND COORDINATING INITIAL CARE: minutes. Vital Signs Vital Signs Date Time Temp Pulse Resp B/P (MAP) Pulse Ox O2 Delivery O2 Flow Rate FiO2 11/18/18 12:22 16 98 11/18/18 11:41 73 127/68 11/18/18 08:33 97.6 Room Air Laboratory Data 24H Labs Laboratory Tests 2 11/18/18 08:56: Immature Granulocyte % (Auto) 0.4, White Blood Count 12.1H, Red Blood Count 5.75H, Hemoglobin 15.8H, Hematocrit 47.3H, Mean Corpuscular Volume 82.3, Mean Corpuscular Hemoglobin 27.5, Mean Corpuscular Hemoglobin Concent 33.4, Red Cell Distribution Width 13.7, Platelet Count 374, Neutrophils (%) (Auto) 76.3H, Lymphocytes (%) (Auto) 17.2L, Monocytes (%) (Auto) 5.0, Eosinophils (%) (Auto) 0.8, Basophils (%) (Auto) 0.3, Neutrophils # (Auto) 9.2H, Lymphocytes # (Auto) 2.1, Monocytes # (Auto) 0.6, Eosinophils # (Auto) 0.1, Basophils # (Auto) 0.0, Nucleated Red Blood Cells % (auto) 0.0, Urine Color YELLOW, Urine Appearance CLOUDYH, Urine pH 5.0, Urine Specific [place] 1.016, Urine Protein NEGATIVE, Urine Glucose (UA) NEGATIVE, Urine Ketones 1+H, Urine Blood 3+H, Urine Nitrite NEGATIVE, Urine Bilirubin NEGATIVE, Urine Urobilinogen 0.2, Urine Leukocyte Esterase 3+H, Urine WBC (Auto) 163H, Urine RBC (Auto) TNTCH, Urine Hyaline Casts (Auto) 0, Urine Bacteria (Auto) 1+H, Urine Squamous Epithelial Cells 5, Urine Mucus (Auto) SMALL, Urine Sperm (Auto) , Anion Gap 10, Glomerular Filtration Rate > 60.0, Calcium Level 9.6, Aspartate Amino Transf (AST/SGOT) 15, Alanine Aminotransferase (ALT/SGPT) 24, Alkaline Phosphatase 109, Total Bilirubin 0.4, Direct Bilirubin 0.1, Total Protein 8.3H, Albumin 3.8, Albumin/Globulin Ratio 0.84L 11/18/18 12:20: Urine Color YELLOW, Urine Appearance CLEAR, Urine pH 5.0, Urine Specific [place] >1.060H, Urine Protein NEGATIVE, Urine Glucose (UA) NEGATIVE, Urine Ketones 1+H, Urine Blood NEGATIVE, Urine Nitrite NEGATIVE, Urine Bilirubin NEGATIVE, Urine Urobilinogen 0.2, Urine Leukocyte Esterase NEGATIVE, Urine WBC (Auto) 0, Urine RBC (Auto) 1, Urine Hyaline Casts (Auto) 0, Urine Bacteria (Auto) NEGATIVE, Urine Squamous Epithelial Cells 0, Urine Mucus (Auto) SMALL, Urine Sperm (Auto) CBC/BMP Laboratory Tests 11/18/18 08:56 Red Blood Count 5.75 H, Mean Corpuscular Volume 82.3, Mean Corpuscular Hemoglobin 27.5, Mean Corpuscular Hemoglobin Concent 33.4, Red Cell Distribution Width 13.7, Neutrophils (%) (Auto) 76.3 H, Lymphocytes (%) (Auto) 17.2 L, Monocytes (%) (Auto) 5.0, Eosinophils (%) (Auto) 0.8, Basophils (%) (Auto) 0.3, Neutrophils # (Auto) 9.2 H, Lymphocytes # (Auto) 2.1, Monocytes # (Auto) 0.6, Eosinophils # (Auto) 0.1, Basophils # (Auto) 0.0 Medications Scheduled Ciprofloxacin HCl (Ciprofloxacin HCl) 500 Mg Tablet, PO BID, (Reported) Methocarbamol (Robaxin-750) 750 Mg Tablet, 500 MG PO BID, (Reported) Multivitamin (Multivitamins) 1 Each Capsule, 1 CAP PO DAILY, (Reported) Omeprazole (Omeprazole) 40 Mg Capsule.dr, 20 MG PO DAILY, (Reported) Scheduled PRN Ibuprofen (Ibuprofen) 200 Mg Capsule, 600 MG PO Q6HP PRN for PAIN, (Reported) Ketorolac Tromethamine (Ketorolac Tromethamine) 10 Mg Tablet, 1 TAB PO Q6HP PRN for pain Ondansetron (Ondansetron Odt) 4 Mg Tab.rapdis, 1 TAB PO Q6-8HP PRN for nausea/vomiting Oxycodone HCl/Acetaminophen (Oxycodone-Acetaminophen 5-325) 1 Each Tablet, PO PRN PRN for pain, (Reported) Polyethylene Glycol 3350 (Miralax) 119 Gm Powder, 17 GM PO DAILY PRN for CONSTIPATION dilute in 8 ounces of water or juice Miscellaneous Medications Albuterol Sulfate (Proair Hfa) 108 Mcg/Act Aer, (Reported) Allergies Coded Allergies: Lemon (Verified Allergy, Severe, lip swelling, 10/28/18) ziprasidone (Verified Adverse Reaction, Intermediate, facial drooping, 10/28/18) Uncoded Allergies: FEMININE PADS (Allergy, Unknown, rash between legs, 10/28/18) Chata Varela MD Nov 18, 2018 13:57
== END 2018-11-18 13:49 | disposition home or self-care (01) ==
LOC: M ED 08:33
DX: R10.9 Unspecified abdominal pain (principal); R11.2 Nausea with vomiting, unspecified; J45.909 Unspecified asthma, uncomplicated; F41.9 Anxiety disorder, unspecified; F32.9 Major depressive disorder, single episode, unspecified; M51.24 Other intervertebral disc displacement, thoracic region; E28.2 Polycystic ovarian syndrome; F12.10 Cannabis abuse, uncomplicated; Z80.3 Family history of malignant neoplasm of breast; Z83.3 Family history of diabetes mellitus; Z82.49 Family history of ischemic heart disease and other diseases of the circulatory system; Z79.899 Other long term (current) drug therapy; Z91.018 Allergy to other foods; Z88.8 Allergy status to other drugs, medicaments and biological substances; Z91.89 Other specified personal risk factors, not elsewhere classified
CPT/HCPCS: 74177; 80048; 80076; 81001; 85025; 87086; 96361; 96374; 96375; 96376; 99284; J1885; J2270; J2405; Q9967

== ENCOUNTER 2018-12-15 08:31 | Emergency (ER) | payer OTHER ==
[~2018-12-15] VITALS: Ht 167.6 cm; Wt 103.9 kg
[~2018-12-15 08:31] MED LIST changes: +CIPR500T3 PO; +KETO10TAB PO; +MIRA3350 PO; +ONDA4TAB6 PO; +OXYC1TAB23 PO
[2018-12-15] MEDS ORDERED: TRAM50TA2 (08:39)
[2018-12-15] MEDS ORDERED: ACETAMINOPHEN TAB 650MG DOSE (2X325MG) PO ONE (09:00)
[2018-12-15 09:24] LABS: BASO % 0.3 % (0.0-1.0); EOS # 0.1 10^3/uL (0.0-0.5); EOS % 1.5 % (0.0-3.0); HEMATOCRIT 44.6 % (36.0-47.0); HEMOGLOBIN 14.5 g/dl (12.0-15.5); LYMPH # 1.9 10^3/uL (1.5-5.0); LYMPH % 20.4 % (24.0-44.0); MEAN CORPUSCULAR HEMOGLOBIN 27.1 pg (27.0-33.0); MEAN CORPUSCULAR HGB CONC 32.5 g/dl (32.0-36.5); MEAN CORPUSCULAR VOLUME 83.2 fl (80.0-96.0); MONO # 0.5 10^3/uL (0.0-0.8); MONO % 4.9 % (0.0-5.0); NEUTROPHILS # 6.6 10^3/uL (1.5-8.5); NEUTROPHILS % 72.6 % (36.0-66.0); PLATELET COUNT, AUTOMATED 293 10^3/uL (150-450); RED BLOOD COUNT 5.36 10^6/uL (4.00-5.40); WHITE BLOOD COUNT 9.2 10^3/uL (4.0-10.0)
[2018-12-15 09:48] LABS: ALBUMIN 3.7 GM/DL (3.2-5.2); ALT/SGPT 27 U/L (12-78); BILIRUBIN,DIRECT < 0.1 MG/DL (0.0-0.2); BILIRUBIN,TOTAL 0.4 MG/DL (0.2-1.0); BLOOD UREA NITROGEN 10 MG/DL (7-18); CARBON DIOXIDE LEVEL 27 MEQ/L (21-32); CHLORIDE LEVEL 106 MEQ/L (98-107); CREATININE FOR GFR 0.77 MG/DL (0.55-1.30); GLOMERULAR FILTRATION RATE > 60.0 (>60); GLUCOSE, FASTING 86 MG/DL (70-100); LIPASE 82 U/L (73-393); SODIUM LEVEL 140 MEQ/L (136-145); TOTAL PROTEIN 7.6 GM/DL (6.4-8.2)
[2018-12-15] MEDS ORDERED: KETOROLAC 30 MG/ML VIAL (J1885) IV ONE (11:00)
--- NOTE | 2018-12-15 12:45 | REP ---
CT of the abdomen pelvis without IV or bowel contrast for left flank pain: Comparison is the abdomen/pelvis CT dated 11/18/2018. There are no left renal or ureteral calculi. There is no left pararenal stranding. There is no left hydronephrosis. There are no right renal or ureteral calculi. There is no right pararenal stranding. There is no right hydronephrosis. There is a mass-like density in the left adnexa measuring up to 3.7 cm, likely the left ovary. However, this measured 2.8 cm on the prior study. The right adnexa is unremarkable. On the prior study with IV contrast there was a fluid/endometrial thickening in the endometrial canal. The endometrial canal is suboptimally demonstrated on the current study without IV contrast. The visualized lower lung rodriguez are unremarkable. The unenhanced hepatic parenchyma, gallbladder, pancreas, spleen, adrenals, abdominal aorta, bowel and mesentery are unremarkable. 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 Pelvis: The left adnexa as described. The right adnexa is unremarkable. Uterus and bladder are unremarkable. There is no ascites or adenopathy. The appendix is unremarkable. There is focal colonic wall thickening in the distal transverse colon and proximal descending colon. This is compatible with colitis in the appropriate clinical setting. Impression: Mass-like density in the left adnexa as described, likely the left ovary, however, is larger than on the prior study. Findings compatible with colitis in the distal transverse colon and proximal descending colon, in the appropriate clinical setting. Electronically Signed by Gregorio Teixeira MD 12/15/2018 12:36 P
[2018-12-15 13:33] VITALS: BP 125/84
--- NOTE | 2018-12-15 13:46 | REP ---
Pelvic sonography: History: Left lower quadrant and flank pain. Mass like density left adnexa on CT study from earlier this date. Sonographic findings: Transabdominal and transvaginal scanning are performed. Uterine dimensions are 9.3 x 4.8 x 5.4 cm. Endometrial echo is 2.0 cm thick. Heterogeneous echogenic material is seen in the endometrium at the fundus. This is not abnormal in this age group. No focal uterine mass is seen. No significant free fluid is noted. Normal ovaries seen bilaterally. Left ovary dimensions by sonography are normal at 3.4 x 2.9 x 2.5 cm. Right ovary measures 3.9 x 2.2 x 2.6 cm. Resistive indices by Doppler are normal bilaterally measured at 0.57 on the right and 0.54 on the left. Impression: Normal pelvic sonography. Electronically Signed by Jovan Melvin MD 12/15/2018 06:48 P
--- NOTE | 2018-12-16 08:56 | ED PDOC ---
Post-Departure Follow-Up radiology report faxed to [facility] Suki Wong MD Dec 16, 2018 08:56
== END 2018-12-15 13:35 | disposition home or self-care (01) ==
LOC: M ED 08:31
DX: K51.90 Ulcerative colitis, unspecified, without complications (principal); F41.9 Anxiety disorder, unspecified; F33.9 Major depressive disorder, recurrent, unspecified; E28.2 Polycystic ovarian syndrome; Z88.8 Allergy status to other drugs, medicaments and biological substances; Z91.048 Other nonmedicinal substance allergy status; Z91.018 Allergy to other foods; Z79.51 Long term (current) use of inhaled steroids; Z79.891 Long term (current) use of opiate analgesic; Z79.899 Other long term (current) drug therapy
CPT/HCPCS: 74176; 76830; 76856; 80048; 80076; 81001; 83690; 84702; 85025; 93976; 96374; 99284; J1885

== ENCOUNTER → 2018-12-16 | Outpatient (REF) | payer OTHER ==
[~2018-12-16] MED LIST changes: +TRAM50TA2
== END ==
LOC: M LAB REF 13:45
PROVIDERS: ATTEND Physician Assistant
DX: K52.9 Noninfective gastroenteritis and colitis, unspecified (principal)

== ENCOUNTER 2019-01-08 03:54 | Emergency (ER) | payer OTHER ==
[~2019-01-08] VITALS: Ht 167.6 cm; Wt 104.5 kg
[2019-01-08] MEDS ORDERED: ALIG4CAP PO (03:59)
[2019-01-08 04:32] LABS: BASO % 0.3 % (0.0-1.0); BILIRUBIN, URINE MANUAL NEGATIVE (NEGATIVE); EOS # 0.1 10^3/uL (0.0-0.5); EOS % 1.4 % (0.0-3.0); GLUCOSE, URINE (UA) MANUAL NEGATIVE (NEGATIVE); HEMATOCRIT 45.1 % (36.0-47.0); HEMOGLOBIN 14.1 g/dl (12.0-15.5); KETONE, URINE MANUAL NEGATIVE (NEGATIVE); LYMPH # 2.8 10^3/uL (1.5-5.0); LYMPH % 26.9 % (24.0-44.0); MEAN CORPUSCULAR HEMOGLOBIN 26.2 pg (27.0-33.0); MEAN CORPUSCULAR HGB CONC 31.3 g/dl (32.0-36.5); MEAN CORPUSCULAR VOLUME 83.7 fl (80.0-96.0); MONO # 0.6 10^3/uL (0.0-0.8); MONO % 6.2 % (0.0-5.0); NEUTROPHILS # 6.7 10^3/uL (1.5-8.5); NEUTROPHILS % 64.8 % (36.0-66.0); PLATELET COUNT, AUTOMATED 331 10^3/uL (150-450); RED BLOOD COUNT 5.39 10^6/uL (4.00-5.40); UROBILINOGEN, URINE MANUAL NORMAL (NORMAL); WHITE BLOOD COUNT 10.3 10^3/uL (4.0-10.0)
[2019-01-08 04:58] LABS: HCG, SERUM QUALITATIVE NEGATIVE (NEGATIVE)
[2019-01-08 05:01] LABS: ALBUMIN 3.7 GM/DL (3.2-5.2); ALT/SGPT 29 U/L (12-78); BILIRUBIN,DIRECT 0.2 MG/DL (0.0-0.2); BILIRUBIN,TOTAL 0.5 MG/DL (0.2-1.0); BLOOD UREA NITROGEN 12 MG/DL (7-18); CALCIUM LEVEL 8.8 MG/DL (8.5-10.1); CARBON DIOXIDE LEVEL 24 MEQ/L (21-32); CHLORIDE LEVEL 109 MEQ/L (98-107); CREATININE FOR GFR 0.73 MG/DL (0.55-1.30); GLOMERULAR FILTRATION RATE > 60.0 (>60); GLUCOSE, FASTING 98 MG/DL (70-100); LIPASE 105 U/L (73-393); POTASSIUM SERUM 4.4 MEQ/L (3.5-5.1); SODIUM LEVEL 141 MEQ/L (136-145); TOTAL PROTEIN 7.6 GM/DL (6.4-8.2)
[2019-01-08] MEDS ORDERED: ONDANSETRON 4MG/2ML VIAL (J2405) IV ONE (05:15)
[2019-01-08] MEDS ORDERED: ISOVUE-370 76% 100ML VIAL (Q9967) As Ordered ONE (05:28)
[2019-01-08] MEDS: MORPHINE 4 MG/ML 1ML VIAL/SYRINGE (J2270) IV PRN ×2 (05:38→07:49)
--- NOTE | 2019-01-08 06:25 | REPVR ---
PROCEDURE INFORMATION: Exam: CT Abdomen And Pelvis With Contrast Exam date and time: 01/08/2019 5:43 AM Age: 28 years old Clinical history: Abdominal pain; Localized; Lower; Additional info: Lower abd pain TECHNIQUE: Imaging protocol: Computed tomography of the abdomen and pelvis with intravenous contrast. Radiation optimization: All CT scans at this facility use at least one of these dose optimization techniques: automated exposure control; mA and/or kV adjustment per patient size (includes targeted exams where dose is matched to clinical indication); or iterative reconstruction. Contrast material: ISOVUE 370; Contrast volume: 100 ml; Contrast route: IV; COMPARISON: CT ABD/PEL W/IV CONTRAST ONLY 11/18/2018 10:02 AM FINDINGS: Mediastinum: There is a small sliding hiatal hernia. Liver: There is suggestion of mild diffuse decreased liver density. Gallbladder and bile ducts: Normal. No calcified stones. No ductal dilation. Pancreas: Normal. No ductal dilation. Spleen: Normal. No splenomegaly. Adrenals: Normal. No mass. Kidneys and ureters: Normal. No hydronephrosis. Stomach and bowel: Unremarkable. No obstruction. No mucosal thickening. Appendix: No evidence of appendicitis. Intraperitoneal space: Unremarkable. No free air. No significant fluid collection. Vasculature: Unremarkable. No abdominal aortic aneurysm. Lymph nodes: Unremarkable. No enlarged lymph nodes. Bladder: Unremarkable as visualized. Reproductive: The endometrium is prominent measuring up to 2 cm in thickness. Bones/joints: Unremarkable. No acute fracture. Soft tissues: Unremarkable. IMPRESSION: 1. Suggestion of fatty infiltration of the liver. 2. Small sliding hernia. 3. Thickened and hypodense endometrial stripe measuring up to 2 cm in thickness. Correlate with menstrual history and pelvic sonogram. This Electronically signed by: Jules Hedrick On 01/08/2019 06:25:10 AM
--- NOTE | 2019-01-08 08:02 | REPVR ---
PROCEDURE INFORMATION: Exam: US Pelvis Complete, Transabdominal Exam date and time: 01/08/2019 7:48 AM Age: 28 years old Clinical history: Pelvic pain; Prior surgery; Surgery date: 1-6 months; Surgery type: Ablation endometrium; Additional info: Adnexal pain, thickened endometrial strip TECHNIQUE: Imaging protocol: Real-time transabdominal pelvic ultrasound with image documentation. Complete exam. COMPARISON: US PELVIC NON-OB COMPLETE 12/15/2018 12:37 PM FINDINGS: Uterus/cervix: The uterus is anteverted measuring 10.2 x 5.7 x 4.3 cm. No focal uterine mass is seen. The endometrial cavity is distended with fluid with internal echoes measuring up to 14 mm in width. The endometrial stripe measures 5-6 mm on either sides of the fluid. The cervix is distended with fluid with internal echoes. Right adnexa: The right ovary measures 3.3 x 2.4 x 2.1 cm. Left adnexa: The left ovary measures 2.9 x 2.3 x 2.4 cm and appears grossly unremarkable. Arterial blood flow seen to the left ovary with the systolic velocity of 4 cm/s and resistive index of 0.5. Free fluid: Small amount of free fluid seen in the cul-de-sac. Bladder: Normal. IMPRESSION: Distended endometrium and endocervix with complex fluid possibly blood or infected fluid. Correlate clinically for distal cervix obstruction. Electronically signed by: Jules Hedrick On 01/08/2019 08:02:35 AM
[2019-01-08] MEDS ORDERED: KETOROLAC 30 MG/ML VIAL (J1885) IV ONE ×2 (08:15→09:45)
[2019-01-08] MEDS ORDERED: KETOROLAC 30 MG/ML VIAL (J1885) As Ordered ONE (08:19)
[2019-01-08 08:32] LABS: CHLAMYDIA DNA AMPLIFICATION NEGATIVE (NEGATIVE); GC DNA AMPLIFICATION NEGATIVE (NEGATIVE)
[2019-01-08 10:06] VITALS: BP 142/82
--- NOTE | 2019-01-08 10:44 | IPNPDOC ---
Text Note Date of Service The patient was seen on 01/08/19. NOTE patient is a 28 yo with recent endometrial ablation on 17sep presents to ED with new onset lower abdominal/pelvic pain that radiates to her vagina x 2 days. Describe pain initially like menstrual pain. Pain worsened this AM and she presented to ED. she has not had vaginal bleeding/discharge since her surgery. denies fever/sweats/chills/n/v. She received morphine and toradol which helped with pain in the ED. PMHx: anxiety PSHx: cd x 2, laparoscopic surgery x 2, btl, endometrial ablation with hysteroscopy. meds: none social: denies tob/etoh/illicit rx vitals: normal nad, laying in bed abd: nd, soft, tender to palpation suprapubic region le: no edema/erythema/tenderness pelvic US: concerning for distended intrauterine cavity and endocervical canal speculum exam: nullip appearing cervix, cervix grasped with single tooth tenaculum. Blue Os finder used to dilate the cervix, able to pass through about 3cm with small amount of red fluid expressed. patient was too uncomfortable to continue. a/p patient s/p endometrial ablation with h/o prior BTL, pain consistent with post ablation syndrome. Discussed with patient regarding cervical stenosis causing pain from intrauterine fluids unable to be expressed. attempt at dilating cervix in ED with minimal success. Discussed with patient option of continue waiting to see if what was done is enough to pass all the intrauterine fluids vs. going back to OR and complete procedure under sedation. Patient states since her pain has improved, will elect to have expectant management at this time. Discussed reasons for coming back to include fever and worsening pain not helped with ibuprofen. DO Sisi VS,Fishbone, I+O VS, Fishbone, I+O Laboratory Tests 01/08/19 04:13 Vital Signs Date Time Temp Pulse Resp B/P (MAP) Pulse Ox O2 Delivery O2 Flow Rate FiO2 01/08/19 07:59 18 01/08/19 07:50 97.5 64 147/89 (108) 96 Room Air JORGE KAT DO Jan 08, 2019 09:14
--- NOTE | 2019-01-12 13:10 | ED PDOC ---
Post-Departure Follow-Up emy tellez faxed formal report of ct abd/p for fu Jay Styles MD Jan 12, 2019 13:10
--- NOTE | 2019-01-12 13:33 | ED PDOC ---
Post-Departure Follow-Up ft bienvenido brown/dr colon le faxed formal report of pelvic us for fu. Jay Styles MD Jan 12, 2019 13:33
== END 2019-01-08 10:41 | disposition home or self-care (01) ==
LOC: M ED 03:54
DX: R10.2 Pelvic and perineal pain (principal); Z79.899 Other long term (current) drug therapy; Z88.8 Allergy status to other drugs, medicaments and biological substances; Z91.018 Allergy to other foods; Z91.048 Other nonmedicinal substance allergy status
CPT/HCPCS: 74177; 76830; 76856; 80048; 80076; 83690; 84703; 85025; 87210; 87491; 87591; 93976; 96374; 96375; 96376; 99284; J1885; J2270; J2405; Q9967

== ENCOUNTER 2019-01-12 08:43 | Day surgery (SDC) | payer OTHER ==
[~2019-01-12] VITALS: Ht 167.6 cm; Wt 103.0 kg
[~2019-01-12 08:43] MED LIST changes: +ALIG4CAP PO
[2019-01-12] MEDS ORDERED: MORPHINE 4 MG/ML 1ML VIAL/SYRINGE (J2270) IV ONE (09:15)
[2019-01-12] MEDS ORDERED: ONDANSETRON 4MG/2ML VIAL (J2405) IV ONE (09:15)
[2019-01-12 09:40] LABS: APPEARANCE, URINE HAZY (CLEAR); BACTERIA, URINE AUTO 1+ (NEGATIVE); BILIRUBIN, URINE AUTO NEGATIVE (NEGATIVE); BLOOD, URINE BLOOD NEGATIVE (NEGATIVE); COLOR, URINE YELLOW (YELLOW); GLUCOSE, URINE (UA) AUTO NEGATIVE (NEGATIVE); KETONE, URINE AUTO NEGATIVE (NEGATIVE); LEUKOCYTE ESTERASE, URINE AUTO NEGATIVE (NEGATIVE); MUCUS, URINE SMALL (NEGATIVE); NITRITE, URINE AUTO NEGATIVE (NEGATIVE); PROTEIN, URINE AUTO NEGATIVE (NEGATIVE); RBC, URINE AUTO 1 /HPF (0-3); SQUAMOUS EPITHELIAL CELL UR AU 7 /HPF (0-6); UROBILINOGEN, URINE AUTO 0.2 mg/dL (0.0-2.0); WBC, URINE AUTO 1 /HPF (0-3)
[2019-01-12 09:43] LABS: BASO % 0.3 % (0.0-1.0); EOS # 0.1 10^3/uL (0.0-0.5); EOS % 1.5 % (0.0-3.0); HEMATOCRIT 44.4 % (36.0-47.0); HEMOGLOBIN 14.2 g/dl (12.0-15.5); LYMPH # 2.4 10^3/uL (1.5-5.0); LYMPH % 25.8 % (24.0-44.0); MEAN CORPUSCULAR HEMOGLOBIN 26.8 pg (27.0-33.0); MEAN CORPUSCULAR VOLUME 83.9 fl (80.0-96.0); MONO # 0.5 10^3/uL (0.0-0.8); MONO % 5.9 % (0.0-5.0); NEUTROPHILS # 6.1 10^3/uL (1.5-8.5); PLATELET COUNT, AUTOMATED 293 10^3/uL (150-450); RED BLOOD COUNT 5.29 10^6/uL (4.00-5.40); WHITE BLOOD COUNT 9.2 10^3/uL (4.0-10.0)
[2019-01-12 10:02] LABS: BLOOD UREA NITROGEN 17 MG/DL (7-18); CALCIUM LEVEL 8.9 MG/DL (8.5-10.1); CARBON DIOXIDE LEVEL 26 MEQ/L (21-32); CHLORIDE LEVEL 109 MEQ/L (98-107); CREATININE FOR GFR 0.76 MG/DL (0.55-1.30); GLOMERULAR FILTRATION RATE > 60.0 (>60); GLUCOSE, FASTING 92 MG/DL (70-100); SODIUM LEVEL 141 MEQ/L (136-145)
[2019-01-12] MEDS ORDERED: METH1TAB40 PO (11:24)
[2019-01-12] MEDS ORDERED: SING10TA32 PO (11:25)
[2019-01-12] MEDS ORDERED: LR 1,000 ML IV SCH ×2 (12:34→22:45)
[2019-01-12] MEDS ORDERED: KETOROLAC 30 MG/ML VIAL (J1885) IV PRN (12:45)
[2019-01-12] MEDS ORDERED: ONDANSETRON 4MG/2ML VIAL (J2405) IV PRN ×2 (12:45→22:45)
[2019-01-12 14:45] VITALS: BP 111/66
[2019-01-12] MEDS ORDERED: SILVER NITRATE APPLICATOR As Ordered ONE (15:13)
[2019-01-12] MEDS ORDERED: LIDOCAINE 1% SDV INJ 30 ML VIAL As Ordered ONE (15:13)
[2019-01-12] MEDS ORDERED: MIDAZOLAM INJ 2 MG/2 ML VIAL (J2250) As Ordered ONE (18:00)
[2019-01-12] MEDS ORDERED: LIDOCAINE 2% INJ 100 MG/5 ML SDV (FOR ANES.) As Ordered ONE (18:00)
[2019-01-12] MEDS ORDERED: METOCLOPRAMIDE INJ 10MG/2ML VIAL (J2765) As Ordered ONE (18:00)
[2019-01-12] MEDS ORDERED: dexameTHASONE 4 MG/ML 1ML VIAL (J1100) As Ordered ONE (18:00)
[2019-01-12] MEDS ORDERED: ONDANSETRON 4MG/2ML VIAL (J2405) As Ordered ONE (18:00)
[2019-01-12] MEDS ORDERED: fentaNYL 100 MCG/2 ML INJECTION (J3010) As Ordered ONE ×2 (18:00→22:38)
[2019-01-12] MEDS ORDERED: PROPOFOL 200 MG/20 ML VIAL As Ordered ONE (18:00)
[2019-01-12] MEDS ORDERED: GLYCOPYRROLATE INJ 0.2 MG/ML 2 ML VIAL As Ordered ONE (21:22)
[2019-01-12] MEDS ORDERED: diphenhydrAMINE 25 MG CAP PO PRN (22:30)
[2019-01-12] MEDS ORDERED: PERCOCET 5MG/325MG TAB PO PRN ×2 (22:30→22:45)
[2019-01-12] MEDS ORDERED: IBUPROFEN 800 MG TAB PO PRN (22:30)
[2019-01-12] MEDS ORDERED: ONDANSETRON 4 MG TAB (S0181) PO PRN (22:30)
[2019-01-12] MEDS ORDERED: PERCOCET 5MG/325MG TAB As Ordered ONE (22:35)
[2019-01-12] MEDS: fentaNYL 100 MCG/2 ML INJECTION (J3010) IV PRN ×2 (22:39→22:44)
[2019-01-12] MEDS ORDERED: KETOROLAC 30 MG/ML VIAL (J1885) IV SCH (22:45)
[2019-01-12] MEDS ORDERED: HYDROMORPHONE HCL 0.5 MG/ 0.5 ML SYRINGE (J1170 PER 1) IV PRN (22:45)
[2019-01-12] MEDS ORDERED: KETOROLAC 30 MG/ML VIAL (J1885) As Ordered ONE (22:49)
[2019-01-12 23:45] VITALS: BP 119/69
[2019-01-13] VITALS (7 sets, daily range): BP systolic 118–141; BP diastolic 60–80
--- NOTE | 2019-01-13 09:46 | IPNPDOC ---
Text Note Date of Service The patient was seen on 01/13/19. NOTE POD 1 Florina is a 28yo doing well on POD 1 s/p uncomplicated dilation of cervix with hysteroscopy indicated for acute pelvic pain and presence of fluid collections within uterus/cervix after having an endometrial ablation in October 2018. Surgery was uncomplicated, cervical stenosis was relieved and the lower uterine cavity had an adhesion that was released. Patient was kept overnight since surgery occurred so late. She has done very well, not having any pain or requiring any pain meds. Ambulating and voiding spontaneously without issue. Tolerating PO intake without emesis. Has some slight nausea. No f/c. Vitals wnl, afebrile General: WDWN, resting comfortably in bed Abdomen: soft, NTTP, non-distended without rebound/guarding Extremities: no pain with palpation of calves Assessment: Florina is a 28yo doing well on POD 1 s/p uncomplicated dilation of cervix with hysteroscopy indicated for acute pelvic pain and presence of fluid collections within uterus/cervix after having an endometrial ablation in October 2018. Vitals wnl, benign exam, not requiring any pain medication. Hemodynamically stable without evidence of infection. Plan: -discharge home today -regular diet -ok to shower -ibuprofen or heating pad for uterine cramping -discussed return precautions -has follow up appt later this week with Dr. Rothman. I told the patient if she is having any issues, she can keep the appt, otherwise ok to cancel Dr. Marilu Aldridge MD VS,Mehdi, I+O VS, Mehdi, I+O Vital Signs Date Time Temp Pulse Resp B/P (MAP) Pulse Ox O2 Delivery O2 Flow Rate FiO2 01/13/19 08:00 98.5 70 17 129/72 (91) 97 Room Air I&O- Last 24 Hours up to 6 AM 01/13/19 06:00 Intake Total 895 ml Output Total 1130 ml Balance -235 ml Marilu Aldrideg MD Jan 13, 2019 09:46
--- NOTE | 2019-01-13 09:51 | DS.PDOC ---
Discharge Summary General Date of Admission 01/12/19 Date of Discharge 01/13/19 Attending Physician: Marilu Aldridge MD Discharge Summary PROCEDURES PERFORMED DURING STAY: Dilation of cervix with hysteroscopy ADMITTING DIAGNOSES: 1. Acute pelvic/abdominal pain with evidence of hematometra on ultrasound in the setting of prior endometrial ablation in Oct 2018 DISCHARGE DIAGNOSES: 1. Acute pelvic/abdominal pain with evidence of hematometra on ultrasound in the setting of prior endometrial ablation in Oct 2018 2. 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 HISTORY OF PRESENT ILLNESS/HOSPITAL COURSE: Florina is a 28yo doing well on POD 1 s/p uncomplicated dilation of cervix with hysteroscopy indicated for acute pelvic pain and presence of fluid collections within uterus/cervix after having an endometrial ablation in October 2018. At time of discharge, her vitals were wnl and she had a benign exam, not requiring any pain medication. Hemodynamically stable without evidence of infection. Patient was kept overnight since surgery occurred so late. She has done very well, not having any pain or requiring any pain meds. Ambulating and voiding spontaneously without issue. Tolerating PO intake without emesis. Has some slight nausea. No f/c. DISCHARGE MEDICATIONS: Please see below. ALLERGIES: Please see below. PHYSICAL EXAMINATION ON DISCHARGE: Vitals wnl, afebrile General: WDWN, resting comfortably in bed Abdomen: soft, NTTP, non-distended without rebound/guarding Extremities: no pain with palpation of calves LABORATORY DATA: Please see below. ACTIVITY: As tolerated DISPOSITION: Home DISCHARGE PLAN/INSTRUCTIONS: -discharge home today -regular diet -ok to shower -ibuprofen or heating pad for uterine cramping -discussed return precautions -has follow up appt later this week with Dr. Rothman. I told the patient if she is having any issues, she can keep the appt, otherwise ok to cancel DISCHARGE CONDITION: Stable TIME SPENT ON DISCHARGE: Greater than [address] Marilu Aldridge MD Vital Signs/I&Os Vital Signs Date Time Temp Pulse Resp B/P (MAP) Pulse Ox O2 Delivery O2 Flow Rate FiO2 01/13/19 08:00 98.5 70 17 129/72 (91) 97 Room Air I&O- Last 24 Hours up to 6 AM 01/13/19 06:00 Intake Total 895 ml Output Total 1130 ml Balance -235 ml Laboratory Data Labs 24H Laboratory Tests 2 01/12/19 09:51: POC Beta HCG, Quantitative < 5.0 Discharge Medications Scheduled Bifidobacterium Infantis (Align) 4 Mg Capsule, 4 MG PO DAILY, (Reported) Montelukast Sodium (Singulair) 10 Mg Tablet, 10 MG PO QHS, (Reported) Multivitamin (Multivitamins) 1 Each Capsule, 1 CAP PO DAILY, (Reported) Omeprazole (Omeprazole) 40 Mg Capsule.dr, 20 MG PO DAILY, (Reported) Scheduled PRN Ibuprofen (Ibuprofen) 200 Mg Capsule, 600 MG PO Q6H PRN for PAIN, (Reported) Methocarbamol (Methocarbamol) 500 Mg Tablet, 500 MG PO BID PRN for PAIN, (Reported) Allergies Coded Allergies: Lemon (Verified Allergy, Severe, lip swelling, 10/28/18) ziprasidone (Verified Adverse Reaction, Intermediate, facial drooping, 10/28/18) Uncoded Allergies: FEMININE PADS (Allergy, Unknown, rash between legs, 10/28/18) Marilu Aldridge MD Jan 13, 2019 09:51
--- NOTE | 2019-01-13 11:31 | RO ---
DATE OF OPERATION: 01/12/2019 STAFF SURGEON: Marilu Aldridge MD [employer] LEVELER: Familia Laird DO MEDICAL SERVICE: Gynecology. INDICATION FOR OPERATION: Florina is a 28-year-old 2, para 1 who underwent an endometrial ablation with hysteroscopy in October 2018 for abnormal uterine bleeding. She then presented over this weekend to the ER with acute abdominal/pelvic pain. On transvaginal ultrasound she was shown to have loculations of fluid within the uterus in the lower uterine segment as well as within the cervix, so presumably she had cervical stenosis from her prior procedure. Dr. Laird saw her on that day and tried to dilate her cervix in the ER but had minimal effect because of patient discomfort. She was instructed to followup in the office later in a week and had an appointment in a few days time but she presented again to the ER complaining of pain. At no time did she have any markers for infection. No fever, no elevated white count, just the pain and the findings on ultrasound with a history of the ablation. I counseled her regarding the option of attempting to drain the collections of fluid with dilation of the cervix and hysteroscopy and she desired to proceed with the procedure. PREOPERATIVE DIAGNOSIS: History of endometrial ablation in October 2018 with findings of hematometra on ultrasound in the setting of acute abdominal pelvic pain with likely cervical stenosis. POSTOPERATIVE DIAGNOSIS: History of endometrial ablation in October 2018 with findings of hematometra on ultrasound in the setting of acute abdominal pelvic pain with likely cervical stenosis. MATERIAL FORWARDED TO THE LAB FOR EXAMINATION: None. DESCRIPTION OF FINDINGS: Dilation of the cervix revealed slight cervical stenosis that once relieved there was dark, old blood emanating from within the uterus out of the cervix. On sounding of the uterus there was a band of adhesion that was released under ultrasound guidance. On hysteroscopy, the band within the lower uterine segment could be visualized but was now opened, there was just a slight stricture there, and there was both atrophic appearing tissue within the uterus as well as areas of proliferative tissue. INFECTION CLASSIFICATION: II. ESTIMATED BLOOD LOSS: 10 mL. IV FLUIDS: 400 mL of Lactated Ringer's. URINE OUTPUT: Not measured. OPERATION PERFORMED: Dilation of cervix with diagnostic hysteroscopy and release of intrauterine adhesion. DESCRIPTION OF OPERATION: After obtaining informed consent the patient was taken to the operating room where she underwent general anesthesia. She was placed in low lithotomy position and the perineum and vagina were prepped and draped in a sterile fashion. The speculum was inserted in the vagina and the anterior segment of the cervix was grasped with a single-tooth tenaculum. 1% lidocaine without epinephrine was injected in four quadrants to obtain adequate cervical block. The cervix was sequentially dilated with Hanks dilators. After just a few dilations the intrauterine contents intracervical/lower uterine segment intrauterine contents began emanating out of the cervix. It was dark, thick old blood. I then used the sound to sound to what I thought was the fundus of the uterus, given that there was 6 cm of depth. However, Dr. Laird was performing abdominal ultrasound at that time and was able to see that the sound was not all the way to the fundus and encouraged me to go further with the sound. At that point I was able then to push further within the uterus and there was a give sensation where likely the release of the intrauterine adhesion occurred, and at that point then under ultrasound guidance Dr. Laird could see that I had the sound then at the true fundus of the uterus. There was no perforation of the uterus at all. At that point there was more release of old dark thick blood and I used a hysteroscopic camera to observe into the cervix and up to the lower uterine segment. I could see a slight stricture at the area where I must have released the adhesion using the sound, but there was no obvious adhesion at that point and nothing to resect. I continued placing the camera within the uterus up to the fundus and was able to observe the fundus of the uterus. There were areas of atrophy where the previous endometrial ablation was effective, but there were also areas of proliferative tissue. At this point I irrigated the uterus to some degree using the hysteroscopic fluid inflow and then using the outflow to evacuate the old blood and once this was sufficiently completed, I then removed the hysteroscopic camera and the tenaculum was removed with hemostasis at the tenaculum sites. The bivalve speculum was removed. There was nothing retained within the vagina. The patient was awakened from anesthesia and taken to recovery room in good condition. All counts were correct times two. MTDD
== END 2019-01-13 10:18 | disposition home or self-care (01) ==
LOC: M ED 08:43 → M SDC 08:44 → M PED 14:40 → M SDC 01-13 10:18
PROVIDERS: ATTEND Obstetrics & Gynecology
DX: N85.7 Hematometra (principal); N99.85 Post endometrial ablation syndrome; R10.2 Pelvic and perineal pain; M54.9 Dorsalgia, unspecified; E66.9 Obesity, unspecified; Z68.37 Body mass index [BMI] 37.0-37.9, adult; F41.9 Anxiety disorder, unspecified; E28.2 Polycystic ovarian syndrome; J45.909 Unspecified asthma, uncomplicated; K21.9 Gastro-esophageal reflux disease without esophagitis; R51 Headache; Z79.899 Other long term (current) drug therapy; Z91.018 Allergy to other foods; Z91.048 Other nonmedicinal substance allergy status; Z88.8 Allergy status to other drugs, medicaments and biological substances
CPT/HCPCS: 58559; 80048; 81001; 84702; 85025; 96374; 96375; 99284; J1100; J1885; J2250; J2270; J2405; J2765; J3010

== ENCOUNTER 2019-09-08 15:41 | Emergency (ER) | payer OTHER ==
[~2019-09-08 15:41] MED LIST changes: +METH1TAB40 PO; +SING10TA32 PO; -TRAZ-163 PO; +TRAZ-257 PO
== END 2019-09-08 18:05 | disposition home or self-care (01) ==
LOC: M ED 15:41
DX: B02.9 Zoster without complications (principal); Z79.84 Long term (current) use of oral hypoglycemic drugs; Z88.8 Allergy status to other drugs, medicaments and biological substances; Z79.899 Other long term (current) drug therapy